=== PATIENT | male | born 1955 | race Caucasian/White ===

== ENCOUNTER 2018-03-29 09:31 | Observation (INO) | payer OTHER ==
--- OUTSIDE RECORDS SUMMARY | 2018-03-29 09:33 | XMS REPORT | Clinical Summary ---
:1955 Author Organization [facility] Address [address] [place] [address] Phone Care Team Providers Name Role Phone Unavailable Primary Care Provider Unavailable Allergies Active Allergy Reactions Severity Noted Date Comments Diphenhydramine-Zinc Acetate Anaphylaxis High 08/17/2017 Ibuprofen Anaphylaxis High 08/17/2017 Aspirin 08/17/2017 Hydrocodone-Acetaminophen 08/19/2017 Current Medications Prescription Sig. Disp. Refills Start Date End Date Status empagliflozin Take 10 mg by 05/17/2017 Active (JARDIANCE) 10 mg mouth daily. tabletIndications: type 2 diabetes mellitus SITagliptin Take 50 mg by Active (JANUVIA) 50 MG mouth daily. tabletIndications: type 2 diabetes mellitus glimepiride Take 2 mg by Active (AMARYL) 2 MG mouth 2 (two) tabletIndications: times daily. type 2 diabetes mellitus amiodarone Take 1 tablet 60 tablet 1 08/24/2017 08/24/2018 Active (PACERONE) 100 MG (100 mg tablet total) by mouth 2 (two) times daily. atorvastatin Take 1 tablet 30 tablet 0 08/24/2017 08/24/2018 Active (LIPITOR) 40 MG (40 mg total) tablet by mouth nightly. gabapentin Take 1 90 capsule 0 08/24/2017 08/24/2018 Active (NEURONTIN) 100 MG capsule (100 capsule mg total) by mouth 3 (three) times daily. lisinopril Take 1 tablet 30 tablet 0 08/24/2017 08/24/2018 Active (PRINIVIL,ZESTRIL) (5 mg total) 5 MG tablet by mouth daily. metoprolol Take 1 tablet 60 tablet 0 08/24/2017 08/24/2018 Active (LOPRESSOR) 25 MG (25 mg total) tablet by mouth 2 (two) times daily. clopidogrel Take 1 tablet 14 tablet 0 09/11/2017 09/11/2018 Active (PLAVIX) 75 mg (75 mg total) tablet by mouth daily. colchicine Take 1 tablet 14 tablet 0 09/11/2017 09/11/2018 Active (COLCRYS) 0.6 mg (0.6 mg tablet total) by mouth daily. amLODIPine Take 2.5 mg 08/24/2017 Discontinued (NORVASC) 2.5 MG by mouth tabletIndications: daily. Chronic Stable Angina Pectoris clopidogrel Take 75 mg by 08/24/2017 Discontinued (PLAVIX) 75 mg mouth daily. tabletIndications: Acute Coronary Syndrome metoprolol Take 50 mg by 08/24/2017 Discontinued (LOPRESSOR) 50 MG mouth 2 (two) tabletIndications: times daily. hypertension ramipril (ALTACE) Take 10 mg by 08/24/2017 Discontinued 10 MG mouth daily. capsuleIndications: hypertension apixaban (ELIQUIS) Take 1 tablet 60 tablet 0 08/24/2017 09/11/2017 Discontinued 2.5 mg Tab tablet (2.5 mg total) by mouth 2 (two) times daily. acetaminophen-codei Take 1 tablet 30 tablet 0 08/24/2017 09/13/2017 ne (TYLENOL #3) by mouth 300-30 mg per every 4 tablet (four) hours as needed for Pain for up to 20 days. Max Daily Amount: 6 tablets Active Problems Problem Noted Date S/P coronary artery bypass graft x 3 08/24/2017 Type 2 diabetes mellitus without complication (HCC) 08/19/2017 Coronary artery disease 08/18/2017 Essential hypertension 08/18/2017 Hyperlipidemia 08/18/2017 Encounters Date Type Specialty Care Team Description 09/10/2017 Anesthesia Event Gorge Mckenzie MD 09/10/2017 Procedure Pass 09/10/2017 Surgery Bandeali, PERICARDIOCENTESIS Benito Cevallos MD 09/09/2017 Orders Only General Internal Medicine 09/08/2017 - Hospital Cardiology Bandeali, Essential hypertension 09/11/2017 Encounter Benito (Primary Dx) MD Jg Cevallos Jamuna V., MD 09/08/2017 Orders Only Internal Medicine Renata Gregorio MD 08/30/2017 Clinical Support Cardiology Germaine Mesa Post-operative state MD Cristi (Primary Dx) 08/18/2017 Hospital Germaine Mesa Encounter MD Cristi 08/18/2017 Anesthesia Event NatanAri MD 08/18/2017 Procedure Pass 08/18/2017 Surgery Germaine Mesa BYPASS,AORTO CORONARY MD Cristi AJ/SVG 08/17/2017 - Hospital Cardiology Germaine Mesa S/P coronary artery 08/24/2017 Encounter MD Cristi bypass graft x 3 (Primary Dx);Coronary artery disease involving autologous vein bypass graft, angina presence unspecified;Coronary artery disease involving [place] coronary artery of [place] heart, angina presence unspecified;Essential hypertension;Coronary artery disease without angina pectoris, unspecified vessel or lesion type, unspecified whether point [place] ir[place] or transplanted heart 08/17/2017 Orders Only General Internal Medicine after 03/28/2017 Family History Medical History Relation Name Comments Diabetes Father Hearing loss Father Heart disease Father Miscarriages / Stillbirths Maternal Grandfather Heart disease Mother Stroke Mother Cancer Paternal Uncle Arthritis Sister Relation Name Status Comments Father Maternal Grandfather Mother Paternal Uncle Sister Social History Tobacco Use Types Packs/Day Years Used Date Never Smoker Smokeless Tobacco: Never Used Tobacco Cessation: Counseling Given: No Alcohol Use Drinks/Week oz/Week Comments Yes 2 Glasses of wine 4.2 2 Cans of beer 3 Shots of liquor Sex Assigned at Date Recorded Not on file Last Filed Vital Signs Vital Sign Reading Time Taken Blood Pressure 128/66 09/11/2017 12:00 PM CDT Pulse 71 09/11/2017 12:00 PM CDT Temperature 35.9 C (96.7 F) 09/11/2017 12:00 PM CDT Respiratory Rate 18 09/11/2017 12:00 PM CDT Oxygen Saturation 98% 09/11/2017 12:00 PM CDT Inhaled Oxygen Concentration - - Weight 95.2 kg (209 lb 14.4 oz) 09/11/2017 8:42 AM CDT Height 185.4 cm (6' 1") 09/08/2017 8:00 PM CDT Body Mass Index 27.69 09/11/2017 8:42 AM CDT Plan of Treatment Health Maintenance Due Date Last Done Comments INFLUENZA VACCINE 08/14/2018 Implants Implanted Type Area Director Of Recruitment And Admissions Device Expiration Model / Identifier Date Serial / Lot Sut Surg Stl 7 18g 18in Mls Mp M655g - [id number] [place]/Arthroscop J &J: ETHICON 05/13/2022 [id number] / Implanted: Qty: 1 on 08/18/2017 by Germaine Mesa MD y [id number] / [id number] Sut Surg Stl 7 18g 18in Mls Mp M655g - [id number] [place]/Arthroscop J &J: ETHICON 05/13/2022 [id number] / Implanted: Qty: 1 on 08/18/2017 by Germaine Mesa MD y [id number] / [id number] Sternal Zipfix Ndl Strl [id number] - Sn/A Cardiovascular Sternum SYNTHES :SYNTHES 06/13/2022 [id number] / Implanted: Qty: 2 on 08/18/2017 by Germaine Mesa MD [facility] N/A / [id number] Procedures Procedure Name Priority Date/Time Associated Diagnosis Comments PERICARDIOCENTESIS 09/10/2017 4:11 percardiofusion PM CDT ENDOSCOPIC HARVEST,VEIN 08/18/2017 7:30 CAOD AM CDT BYPASS,AORTO CORONARY 08/18/2017 7:30 CAOD AJ/SVG AM CDT after 03/28/2017 Results RHYTHM STRIP - SCAN (09/21/2017 1:22 PM)Only the most recent of3 resultswithin the time period is included.CARDIAC CATH REPORT - SCAN (09/12/2017 11:11 PM) ECHOCARDIOGRAM REPORT - SCAN (09/12/2017 7:20 AM)Only the most recent of2 resultswithin the time period is included.Limited 2D Echocardiogram (09/11/2017 12:16 PM) Component Value Ref Range Ejection Fraction Specimen Performing Laboratory [facility] Narrative Transthoracic Echocardiography Report (TTE) Demographics Patient Name GERMAINE DE LEÓN Date of Study 09/11/2017 ALANNAH [id number] GenderMale Visit Number [id number] Race Unknown [id number] Number [id number] Number Date of Birth1955 Referring Physician Age62 year(s) Publicity Manager Kenan Packer VICTOR HUGO [facility] Needs to be Pre Physician Read Suha Guzman MD Fellow LIANG Rider Procedure Type of Study TTE procedure:LIMITED 2D ECHOCARDIOGRAM (STAT) Indications:Pericardial effusion. Clinical History Coronary Artery Disease Diabetes Hypertension 08/18/17 ACB x3 09/10/17 Pericardiocentesis HGB 13.2 HCT 42.5 % Height: 73 inches Weight: 94.8 kg (209 lbs) BSA: 2.19 m^2 BMI: 27.57 kg/m^2 HR: 70 bpm BP: 122/67 mmHg Summary Limited 2D study to evaluate for pericardial effusion. A circumferential moderate pericardial effusion is present predominately loculated posteriorly measured at the end of diastole 1.8 cm. Small effusion anterior. Pericardial tamponade physiology is not evident by 2 d imaging. Signature Findings Left Ventricle Mild concentric LV hypertrophy. The left ventricle is chamber size (by vol index) is normal (male - LVED vol - 34-74ml/m2). Septal motion is abnormal, likely related to prior cardiac surgery . The other segments contract normally. LVEF by Spence's method of disk assessment is normal (55-60%) . The LVEF was measured using Spence's bi- plane method of disk . Degree of diastolic dysfunction (LAP assessment) is inconclusive due to 2D only . Left AtriumLA size is normal (16-34 ml/m2) . Right VentricleRV chamber size is normal . Global RV systolic function is low normal . Right Atrium RA cavity size is normal . Aortic Valve Normal AoV structure. Aortic annulus appears calcified. Mitral Valve Mild MV leaflet thickening. Tricuspid ValveTV structure is normal. Pulmonic Valve Normal PV structure. AortaAortic root size (SInus of Valsalva diameter) is normal . PericardiumA circumferential moderate pericardial effusion is present predominately loculated posteriorly measured at the end of diastole 1.8 cm. Small effusion anterior. Pericardial tamponade physiology is not evident . IVC/SVC/PA/PV/PleuralThe inferior vena cava is not visualized. The estimated RA pressure by IVC dynamics indeterminate . Chambers/Structures Left Atrium LA Volume: 66.99 ml LA Area: 22.63 cm^ 2 LA Vol. Index: 31 ml/m^2 Left Ventricle LVIDd: 3.48 cm LVEDV 2D: 50.24 ml LVIDs: 2.24 cm LVESV 2D: 17 ml LV Septum Diastolic: 1.95 cm LV Septum Systolic: 1.79 cm LV PW Diastolic: 1.49 cm LV FS: 35.6 % LV PW Systolic: 1.46 cmLV ESV (Cubed): 11.24 cc LVEDV BP Spence's:139.96 ml LVESV BP Spence's:59.86 ml LVEF BP Spence's: 57.2 % LV ESV (Teich):16.96 ml LV SV (Teich):33.22 ml LV SI (Teich):15.17 ml/m^2 LVEF 2D Teich: 66.2 % Aorta Ao Root S of Bryanna.: 2.52 cm Procedure Note Interface, External Ris In - 09/12/2017 1:41 AM CDT Transthoracic Echocardiography Report (TTE) Demographics Patient Name GERMAINE DE LEÓN Date of Study 09/11/2017 [facility] Gender Male Visit Number [id number] Race Unknown Room Number 1055 Number Date of 1955 Referring Physician Age 62 year(s) Publicity Manager Kenan Packer RDCS Interpreting [facility] Needs to be Pre Physician Read Suha Guzman MD Fellow LIANG Rider Procedure Type of Study TTE procedure:LIMITED 2D ECHOCARDIOGRAM (STAT) Indications:Pericardial effusion. Clinical History Coronary Artery Disease Diabetes Hypertension 08/18/17 ACB x3 09/10/17 Pericardiocentesis HGB 13.2 HCT 42.5 % Height: 73 inches Weight: 94.8 kg (209 lbs) BSA: 2.19 m^2 BMI: 27.57 kg/m^2 HR: 70 bpm BP: 122/67 mmHg Summary Limited 2D study to evaluate for pericardial effusion. A circumferential moderate pericardial effusion is present predominately loculated posteriorly measured at the end of diastole 1.8 cm. Small effusion anterior. Pericardial tamponade physiology is not evident by 2 d imaging. Signature Findings Left Ventricle Mild concentric LV hypertrophy. The left ventricle is chamber size (by vol index) is normal (male - LVED vol - 34-74ml/m2). Septal motion is abnormal, likely related to prior cardiac surgery . The other segments contract normally. LVEF by Spence's method of disk assessment is normal (55-60%) . The LVEF was measured using Spence's bi-plane method of disk . Degree of diastolic dysfunction (LAP assessment) is inconclusive due to 2D only . Left Atrium LA size is normal (16-34 ml/m2) . Right Ventricle RV chamber size is normal . Global RV systolic function is low normal . Right Atrium RA cavity size is normal . Aortic Valve Normal AoV structure. Aortic annulus appears calcified. Mitral Valve Mild MV leaflet thickening. Tricuspid Valve TV structure is normal. Pulmonic Valve Normal PV structure. Aorta Aortic root size (SInus of Valsalva diameter) is normal . Pericardium A circumferential moderate pericardial effusion is present predominately loculated posteriorly measured at the end of diastole 1.8 cm. Small effusion anterior. Pericardial tamponade physiology is not evident . IVC/SVC/PA/PV/Pleural The inferior vena cava is not visualized. The estimated RA pressure by IVC dynamics indeterminate . Chambers/Structures Left Atrium LA Volume: 66.99 ml LA Area: 22.63 cm^2 LA Vol. Index: 31 ml/m^2 Left Ventricle LVIDd: 3.48 cm LVEDV 2D:50.24 ml LVIDs: 2.24 cm LVESV 2D:17 ml LV Septum Diastolic: 1.95 cm LV Septum Systolic: 1.79 cm LV PW Diastolic: 1.49 cm LV FS: 35.6 % LV PW Systolic: 1.46 cm LV ESV (Cubed):11.24 cc LVEDV BP Spence's:139.96 ml LVESV BP Spence's:59.86 ml LVEF BP Spence's: 57.2 % LV ESV (Teich):16.96 ml LV SV (Teich):33.22 ml LV SI (Teich):15.17 ml/m^2 LVEF 2D Teich: 66.2 % Aorta Ao Root S of Bryanna.: 2.52 cm POC-Glucose meter (09/11/2017 11:09 AM)Only the most recent of38 resultswithin the time period is included. Component Value Ref Range POC-Glucose Meter 186 (H)Comment: TESTED AT [address] 70 - 110 mg/[place] [id number] Specimen Performing Laboratory Blood [address] [address] CBC (Hemogram only) (09/11/2017 4:56 AM)Only the most recent of3 resultswithin the time period is included. Component Value Ref Range WBC 6.7 3.5 - 10.5 K/L RBC 4.87 4.63 - 6.08 M/L Hemoglobin 13.2 (L) 13.7 - 17.5 GM/DL Hematocrit 42.5 40.1 - 51.0 % MCV 87.3 79.0 - 92.2 fL MCH 27.1 25.7 - 32.2 pg MCHC 31.1 (L) 32.3 - 36.5 GM/DL RDW 14.0 11.6 - 14.4 % Platelets 332 150 - 450 K/CU MM MPV 9.8 9.4 - 12.4 fL nRBC 0 0 - 0 /100 WBC Specimen Performing Laboratory Blood [address] [address] Basic Metabolic Panel (09/11/2017 4:56 AM)Only the most recent of11 resultswithin the time period is included. Component Value Ref Range Sodium 142 136 - 145 meq/L Potassium 5.1 3.5 - 5.1 meq/L Chloride 108 (H) 98 - 107 meq/L CO2 26 22 - 29 meq/L BUN 20 7 - 21 mg/dL Creatinine 1.34 (H) 0.57 - 1.25 mg/dL Glucose 118 (H) 70 - 105 mg/dL Calcium 9.3 8.4 - 10.2 mg/dL EGFR 54Comment: ESTIMATED GFR IS NOT ACCURATE mL/min/1.73 sq m CREATININE CLEARANCE IN PREDICTING GLOMERULAR FILTRATION RATE. ESTIMATED GFR IS NOT APPLICABLE FOR DIALYSIS PATIENTS. Specimen Performing Laboratory Blood [place] [id number] ECG 12 lead (09/09/2017 5:40 AM)Only the most recent of3 resultswithin the time period is included. Specimen Performing Laboratory GE MUSE Narrative Ventricular Rate 69 BPM Atrial Rate 69 BPM P-R Interval 146 ms QRS Duration 90 ms Q-T Interval 448 ms QTC Calculation(Bazett) 480 ms P [place] 38 degrees R [place] -13 degrees T [place] 137 degrees Normal sinus rhythm T wave abnormality, consider anterolateral ischemia Prolonged QT Abnormal ECG When compared with ECG of 17-AUG-2017 22:01, Non-specific change in ST segment in Inferior leads ST no longer depressed in Anterior leads T wave inversion less evident in Anterior leads Confirmed by MD MARROQUIN RUPA ([id number]) on 09/09/2017 1:54:07 PM Procedure Note Interface, External Ris In - 09/09/2017 1:54 PM CDT Ventricular Rate 69 BPM Atrial Rate 69 BPM P-R Interval 146 ms QRS Duration 90 ms Q-T Interval 448 ms QTC Calculation(Bazett) 480 ms P [place] 38 degrees R [place] -13 degrees T [place] 137 degrees Normal sinus rhythm T wave abnormality, consider anterolateral ischemia Prolonged QT Abnormal ECG When compared with ECG of 17-AUG-2017 22:01, Non-specific change in ST segment in Inferior leads ST no longer depressed in Anterior leads T wave inversion less evident in Anterior leads Confirmed by MD MARROQUIN RUPA ([id number]) on 09/09/2017 1:54:07 PM PT/aPTT (09/08/2017 9:39 PM) Component Value Ref Range Protime 15.6 (H) 11.7 - 14.7 seconds INR 1.3 <=5.9 PTT 35.9 22.5 - 36.0 seconds Specimen Performing Laboratory Blood [address] [address] Narrative RECOMMENDED COUMADIN/WARFARIN INR THERAPY RANGES STANDARD DOSE: 2.0 - 3.0 Includes: PROPHYLAXIS for venous thrombosis, systemic embolization; TREATMENT for venous thrombosis and/or pulmonary embolus. HIGH RISK: Target INR is 2.5-3.5 for patients with mechanical heart valves. CBC with platelet count + automated diff (09/08/2017 9:39 PM)Only the most recent of9 resultswithin the time period is included. Component Value Ref Range WBC 8.1 3.5 - 10.5 K/L RBC 4.66 4.63 - 6.08 M/L Hemoglobin 12.6 (L) 13.7 - 17.5 GM/DL Hematocrit 40.7 40.1 - 51.0 % MCV 87.3 79.0 - 92.2 fL MCH 27.0 25.7 - 32.2 pg MCHC 31.0 (L) 32.3 - 36.5 GM/DL RDW 14.1 11.6 - 14.4 % Platelets 438 150 - 450 K/CU MM MPV 10.2 9.4 - 12.4 fL nRBC 0 0 - 0 /100 WBC % Neutros 68 % % Lymphs 19 % % Monos 8 % % Eos 4 % % Baso 1 % # Neutros 5.28 1.78 - 5.38 K/L # Lymphs 1.49 1.32 - 3.57 K/L # Monos 0.60 0.30 - 0.82 K/L # Eos 0.29 0.04 - 0.54 K/L # Baso 0.00 (L) 0.01 - 0.08 K/L Immature Granulocytes-Relative 0 0 - 1 % Specimen Performing Laboratory Blood [address] [address] CBC with platelet count + automated diff (09/08/2017 9:39 PM)Only the most recent of9 resultswithin the time period is included. Specimen Performing Laboratory Blood Narrative The following orders were created for panel order CBC with platelet count + automated diff. Procedure Abnormality Status --------- ------ CBC with platelet count ...[[id number]]AbnormalFinal result Please view results for these tests on the individual orders. Phosphorus (09/08/2017 9:39 PM)Only the most recent of3 resultswithin the time period is included. Component Value Ref Range Phosphorus 3.4 2.3 - 4.7 mg/dL Specimen Performing Laboratory Blood [address] [address] Magnesium (09/08/2017 9:39 PM)Only the most recent of3 resultswithin the time period is included. Component Value Ref Range Magnesium 2.0 1.6 - 2.6 mg/dL Specimen Performing Laboratory Blood [address] [address] Hepatic function panel (09/08/2017 9:39 PM)Only the most recent of2 resultswithin the time period is included. Component Value Ref Range Protein, Total 7.2 6.0 - 8.3 gm/dL Albumin 3.9 3.5 - 5.0 g/dL Total Bilirubin <0.3 0.2 - 1.2 mg/dL Bilirubin, Direct 0.2 0.1 - 0.5 mg/dL Alkaline Phosphatase 114 40 - 150 U/L AST 15 5 - 34 U/L ALT 15 6 - 55 U/L Specimen Performing Laboratory Blood [address] [address] PERMANENT LAB REPORT - SCAN (08/25/2017 12:43 PM)VASCULAR DIAGRAM -SCAN (2016 12:43 PM)2D Echo W/O Doppler(No Doppler) (08/23/2017 4:36 PM) Component Value Ref Range Ejection Fraction Specimen Performing Laboratory [facility] Narrative Transthoracic Echocardiography Report (TTE) Demographics Patient Name GERMAINE DE LEÓN Date of Study 08/23/2017 [id number] GenderMale Visit Number [id number] Race Unknown [id number] Number [id number] Number Date of Birth1955 Referring Physician Age62 year(s) Publicity Manager Margaux Lopez [facility] Needs to be Pre Physician Read Suha Guzman MD Fellow Johnny TAVERA Procedure Type of Study TTE procedure:ECHO2D MODE W/O DOPPLER (OLGA LIDIA) Indications:Sustained or non sustained Afib, SVT or VT. Clinical History HGB 10.4 HCT 32.5 % ACB X 3 (08/18/17) CAD, HTN, HLD, DM Height: 72 inches Weight: 102.97 kg (227 lbs) BSA: 2.25 m^2 BMI: 30.79 kg/m^2 HR: 88 bpm BP: 139/65 mmHg Summary Normal diastolic function. All of the LV segments contract normally . Estimated LVEF by qualitative assessment is normal (55-60%) Estimated peak systolic PA pressure is 20-25 mmHg . Intermediate sized circumferential pericardial effusion ~ 10 mm in size end diastole. No evidence of tamponade Previous Study No prior study Signature Findings Rhythm/BPIndeterminate rhythm during the exam. Left Ventricle LV septal thickness is mildly increased (1.2-1.4cm). LV posterior wall thickness is normal . The left ventricle is chamber size (by PSLAX dimension) is normal (male - LVIDd 4.2-5.8cm) . Septal motion is abnormal, likely related to prior cardiac surgery . Normal diastolic function. All of the LV segments contract normally . Estimated LVEF by qualitative assessment is normal (55-60%) . Left AtriumLA size is normal . Right VentricleGlobal RV systolic function is mildly reduced . Right Atrium RA size is normal. Aortic Valve Aortic annulus appears calcified . Mitral Valve Mild MV leaflet thickening. Tricuspid ValveMild tricuspid regurgitation. Estimated peak systolic PA pressure is 20-25 mmHg . Pulmonic Valve Normal PV structure and function. AortaAortic root size (SInus of Valsalva diameter) is normal . The aortic sinotubular junction appears normal . Proximal ascending aorta size is normal . PericardiumIntermediate sized circumferential pericardial effusion ~ 10 mm in size end diastole. No evidence of tamponade. IVC/SVC/PA/PV/PleuralThe inferior vena cava is adequately visualized. The inferior vena cava size is increased . The estimated RA pressure by IVC dynamics 11-15mmHg . Chambers/Structures Left Atrium LA Volume: 52.3 mlLA Area: 17.26 cm^2 LA Vol. Index: 23 ml/m^2 Left Ventricle LVIDd: 4.28 cm LVEDV 2D:82.09 ml LV Septum Diastolic: 1.37 cm LV PW Diastolic: 1.07 cm LVOT Diameter: 2.[address] Junction: 2.54 cm Ascending Aorta: 2.77 cm Shunts QS:61.13 ml Doppler/Quantitative Measurements Mitral Valve MV Peak E-Wave: 1.29 m/s MV Peak A-Wave: 1 m/s E/A Ratio: 1.29 Mean Velocity: 0.76 m/sPeak Gradient: 6.61 mmHg Mean Gradient: 2.77 mmHg Area (continuity): 1.89 cm^2 MV VTI: 32.25 cm Tissue Doppler E' Lateral Velocity: 0.1 m/s E/E': 13.14 Aortic Valve Peak Velocity: 1.16 m/sMean Velocity: 0.86 m/s Peak Gradient: 5.34 mmHg Mean Gradient: 3.27 mmHg AV Area (continuity): 3.06 cm^2 AV VTI: 20 cm AV DVI: 0.83 LVOT Peak Velocity: 1 m/s Peak Gradient: 4 mmHg Mean Velocity: 0.6 m/s Mean Gradient: 1.72 mmHg LVOT Diameter: 2.17 cm LVOT VTI: 16.53 cm LVOT Area: 3.7 cm^2LVOT SV:61.1 ml LVOT CO: 5.38 l/minLVOT CI: 2.39 l/min/m^2 Procedure Note Interface, External Ris In - 08/24/2017 8:29 PM CDT Transthoracic Echocardiography Report (TTE) Demographics Patient Name GERMAINE DE LEÓN Date of Study 08/23/2017 Gender Male Visit Number [id number] Race Unknown Room Number 1142 Number Date of 1955 Referring Physician Age 62 year(s) Publicity Manager Margaux Lopez Interpreting [facility] Needs to be Pre Physician Read Suha Guzman MD Fellow Johnny TAVERA Procedure Type of Study TTE procedure:ECHO2D MODE W/O DOPPLER (OLGA LIDIA) Indications:Sustained or non sustained Afib, SVT or VT. Clinical History HGB 10.4 HCT 32.5 % ACB X 3 (08/18/17) CAD, HTN, HLD, DM Height: 72 inches Weight: 102.97 kg (227 lbs) BSA: 2.25 m^2 BMI: 30.79 kg/m^2 HR: 88 bpm BP: 139/65 mmHg Summary Normal diastolic function. All of the LV segments contract normally . Estimated LVEF by qualitative assessment is normal (55-60%) Estimated peak systolic PA pressure is 20-25 mmHg . Intermediate sized circumferential pericardial effusion ~ 10 mm in size end diastole. No evidence of tamponade Previous Study No prior study Signature Findings Rhythm/BP Indeterminate rhythm during the exam. Left Ventricle LV septal thickness is mildly increased (1.2-1.4cm). LV posterior wall thickness is normal . The left ventricle is chamber size (by PSLAX dimension) is normal (male - LVIDd 4.2-5.8cm) . Septal motion is abnormal, likely related to prior cardiac surgery . Normal diastolic function. All of the LV segments contract normally . Estimated LVEF by qualitative assessment is normal (55-60%) . Left Atrium LA size is normal . Right Ventricle Global RV systolic function is mildly reduced . Right Atrium RA size is normal. Aortic Valve Aortic annulus appears calcified . Mitral Valve Mild MV leaflet thickening. Tricuspid Valve Mild tricuspid regurgitation. Estimated peak systolic PA pressure is 20-25 mmHg . Pulmonic Valve Normal PV structure and function. Aorta Aortic root size (SInus of Valsalva diameter) is normal . The aortic sinotubular junction appears normal . Proximal ascending aorta size is normal . Pericardium Intermediate sized circumferential pericardial effusion ~ 10 mm in size end diastole. No evidence of tamponade. IVC/SVC/PA/PV/Pleural The inferior vena cava is adequately visualized. The inferior vena cava size is increased . The estimated RA pressure by IVC dynamics 11-15mmHg . Chambers/Structures Left Atrium LA Volume: 52.3 ml LA Area: 17.26 cm^2 LA Vol. Index: 23 ml/m^2 Left Ventricle LVIDd: 4.28 cm LVEDV 2D:82.09 ml LV Septum Diastolic: 1.37 cm LV PW Diastolic: 1.07 cm LVOT Diameter: 2.[address] Junction: 2.54 cm Ascending Aorta: 2.77 cm Shunts QS:61.13 ml Doppler/Quantitative Measurements Mitral Valve MV Peak E-Wave: 1.29 m/s MV Peak A-Wave: 1 m/s E/A Ratio: 1.29 Mean Velocity: 0.76 m/s Peak Gradient: 6.61 mmHg Mean Gradient: 2.77 mmHg Area (continuity): 1.89 cm^2 MV VTI: 32.25 cm Tissue Doppler E' Lateral Velocity: 0.1 m/s E/E': 13.14 Aortic Valve Peak Velocity: 1.16 m/s Mean Velocity: 0.86 m/s Peak Gradient: 5.34 mmHg Mean Gradient: 3.27 mmHg AV Area (continuity): 3.06 cm^2 AV VTI: 20 cm AV DVI: 0.83 LVOT Peak Velocity: 1 m/s Peak Gradient: 4 mmHg Mean Velocity: 0.6 m/s Mean Gradient: 1.72 mmHg LVOT Diameter: 2.17 cm LVOT VTI: 16.53 cm LVOT Area: 3.7 cm^2 LVOT SV:61.1 ml LVOT CO: 5.38 l/min LVOT CI: 2.39 l/min/m^2 TRANSFUSION SERVICE REPORT - SCAN (08/20/2017 5:32 PM)Only the most recent of3 resultswithin the time period is included.XR chest 1 view portable / bedside ( 5:34 AM)Only the most recent of5 resultswithin the time period is included. Specimen Performing Laboratory GE RIS Narrative FINAL REPORT Chest one view AP 08/20/2017 8:10 AM CLINICAL INDICATION: s/p sternotomy COMPARISON: 08/19/2017 IMPRESSION: Cardiomediastinal contours are stable. Opacity in the left lower lung suggest atelectasis. The right lung is well aerated. The central pulmonary vasculature is not engorged. Remaining support hardware is unchanged in position. No pneumothorax is evident. Signed: Dread Lisa MD Report Verified Date/Time:08/20/2017 08:11:17 Reading Location: [address] Neuro Reading Room Procedure Note Interface, External Ris In - 08/20/2017 8:13 AM CDT FINAL REPORT Chest one view AP 08/20/2017 8:10 AM CLINICAL INDICATION: s/p sternotomy COMPARISON: 08/19/2017 IMPRESSION: Cardiomediastinal contours are stable. Opacity in the left lower lung suggest atelectasis. The right lung is well aerated. The central pulmonary vasculature is not engorged. Remaining support hardware is unchanged in position. No pneumothorax is evident. Signed: Dread Lisa MD Report Verified Date/Time: 08/20/2017 08:11:17 Reading Location: [address] Neuro Reading Room Hemoglobin A1c (08/20/2017 5:13 AM) Component Value Ref Range Hemoglobin A1C 7.5 (H) 4.3 - 6.1 % Specimen Performing Laboratory Blood [address] [address] Prepare PLT (08/19/2017 11:54 PM) Component Value Ref Range Unit ABO O Pos UNIT NUMBER [id number] Status TRANSFUSED Blood Bank Product PLATELETS PRODUCT CODE Y5576H37 Unit ABO O Pos UNIT NUMBER [id number] Status TRANSFUSED Blood Bank Product PLATELETS PRODUCT CODE H1233H11 Specimen Performing Laboratory [facility] [place] Oxygen saturation, measured (08/19/2017 4:59 AM)Only the most recent of2 resultswithin the time period is included. Component Value Ref Range O2 Saturation (Measured) 72.3 % Specimen Performing Laboratory Blood [address] [address] Calcium, Ionized (08/19/2017 4:59 AM)Only the most recent of3 resultswithin the time period is included. Component Value Ref Range Calcium, Ion 1.17 1.12 - 1.27 mmol/L pH, Blood 7.35 Specimen Performing Laboratory Blood [address] [address] Lactic acid, arterial, whole blood (08/19/2017 4:59 AM)Only the most recent of2 resultswithin the time period is included. Component Value Ref Range Lactate, Art 0.9 0.5 - 2.2 mmol/L Specimen Performing Laboratory Blood, [address] [address] Narrative Effective 03/17/2016: Units/Reference Range Change New: 0.5-2.2 mmol/LPrevious: 5-20 mg/dL Potassium-Stat Lab (08/18/2017 3:07 PM)Only the most recent of5 resultswithin the time period is included. Component Value Ref Range Potassium 4.8 3.6 - 5.5 meq/L Specimen Performing Laboratory Blood, [address] [address] Glucose-Stat Lab (08/18/2017 3:07 PM)Only the most recent of5 resultswithin the time period is included. Component Value Ref Range Glucose 213 (H) 70 - 110 mg/dL Specimen Performing Laboratory Blood, [address] [address] Blood gas, arterial (08/18/2017 3:07 PM)Only the most recent of5 resultswithin the time period is included. Component Value Ref Range pH, Arterial 7.36 7.35 - 7.45 pCO2, Arterial 40 35 - 45 mmHg pO2, Arterial 102 (H) 80 - 90 mmHg O2 Sat, Arterial 97.5 (H) 96.0 - 97.0 % HCO3, Arterial 22 21 - 29 mmol/L Base Excess, Arterial -3.1 (L) -2.0 - 3.0 mmol/L Patient Temperature 36.9 C FIO2 40.0 % Specimen Performing Laboratory Blood, [address] [address] Platelet Aggregation: Function Screen (08/18/2017 1:21 PM)Only the most recent of2 resultswithin the time period is included. Component Value Ref Range Weak ADP 39 (L)Comment: Specimen icteric 60 - 91 % Plt. Function Screen Interpretation 0-39% indicates marked platelet dysfunction Pathologist: Fanny Hansen MD (electronic signature) Platelets 324 150 - 450 K/CU MM Specimen Performing Laboratory [address] [address] Narrative Platelet Function Screen results may be falsely low with platelet counts <100,000/cu mm. aPTT (08/18/2017 1:21 PM)Only the most recent of4 resultswithin the time period is included. Component Value Ref Range PTT 32.7 22.5 - 36.0 seconds Specimen Performing Laboratory Blood [address] [address] Prothromin time/INR (08/18/2017 1:21 PM)Only the most recent of4 resultswithin the time period is included. Component Value Ref Range Protime 15.3 (H) 11.7 - 14.7 seconds INR 1.2 <=5.9 Specimen Performing Laboratory Blood [address] [address] Narrative RECOMMENDED COUMADIN/WARFARIN INR THERAPY RANGES STANDARD DOSE: 2.0 - 3.0 Includes: PROPHYLAXIS for venous thrombosis, systemic embolization; TREATMENT for venous thrombosis and/or pulmonary embolus. HIGH RISK: Target INR is 2.5-3.5 for patients with mechanical heart valves. Fibrinogen (08/18/2017 1:21 PM)Only the most recent of2 resultswithin the time period is included. Component Value Ref Range Fibrinogen 350 225 - 434 mg/dl Specimen Performing Laboratory Blood [address] [address] Prepare RBC (08/18/2017 1:01 PM) Component Value Ref Range CROSSMATCH COMPATIBLE Unit ABO O Pos UNIT NUMBER [id number] Status RETURNED FROM ISSUE Blood Bank Product RED BLOOD CELLS PRODUCT CODE A6431Z82 CROSSMATCH COMPATIBLE Unit ABO O Pos UNIT NUMBER [id number] Status RETURNED FROM ISSUE Blood Bank Product RED BLOOD CELLS PRODUCT CODE Q5663L79 CROSSMATCH COMPATIBLE Unit ABO O Pos UNIT NUMBER [id number] Status RETURNED FROM ISSUE Blood Bank Product RED BLOOD CELLS PRODUCT CODE Y5178S12 CROSSMATCH COMPATIBLE Unit ABO O Pos UNIT NUMBER [id number] Status RETURNED FROM ISSUE Blood Bank Product RED BLOOD CELLS PRODUCT CODE [id number] Specimen Performing Laboratory [facility] [place] Sodium Na-Stat Lab (08/18/2017 11:29 AM)Only the most recent of4 resultswithin the time period is included. Component Value Ref Range Sodium 133 (L) 135 - 148 meq/L Specimen Performing Laboratory Blood, Arterial [address] [address] HGB/HCT (H&H)-Stat Lab (08/18/2017 11:29 AM)Only the most recent of4 resultswithin the time period is included. Component Value Ref Range Hemoglobin 14.8 13.0 - 16.8 g/dL Hematocrit 44.0 40.0 - 50.0 % Specimen Performing Laboratory Blood, Arterial [address] [address] ANESTHESIA ZEINA (08/18/2017 10:39 AM)Only the most recent of2 resultswithin the time period is included. Narrative Jg Deras MD 08/18/2017 10:39 AM ZEINA Pre Intervention Summary: Post Intervention Summary: Procedure Note Jg Deras MD - 08/18/2017 10:38 AM CDT Formatting of this note may be different from the original. ZEINA Pre Intervention Summary: Post Intervention Summary: POC ACTIVATED CLOTTING TIME (08/18/2017 9:55 AM)Only the most recent of3 resultswithin the time period is included. Component Value Ref Range Activated Clotting Time 120Comment: TESTED AT [address] sec [id number] Specimen Performing Laboratory Blood [address] [address] [facility] (ABG,NA,K,H&H,GLUCOSE) (08/18/2017 9:52 AM)Only the most recent of3 resultswithin the time period is included. Specimen Performing Laboratory Blood, Arterial Narrative The following orders were created for panel order [facility] (ABG,NA,K,H&H,GLUCOSE). Procedure Abnormality Status --------- ------ Blood gas, arterial[[id number]]AbnormalFinal result Sodium Na-Stat Lab[[id number]] AbnormalFinal result Potassium-Stat Lab[[id number]] NormalFinal result Glucose-Stat Lab[[id number]] AbnormalFinal result HGB/HCT (H&H)-Stat Lab[[id number]] Abnormal Final result Please view results for these tests on the individual orders. Thromboelastograph (TEG) (08/18/2017 9:52 AM) Component Value Ref Range TEG Activated Clotting Time 4.5 4.0 - 7.0 minutes TEG Fibrinogen Activity 60.8 (L) 61.0 - 73.0 degrees TEG Platelet Aggregation 49.3 (L) 55.0 - 65.0 MM TEG-H Activated Clotting Time 4.5 4.0 - 7.0 minutes TEG-H Fibrinogen Activity 65.4 61.0 - 73.0 degrees TEG-H Platelet Aggregation 52.6 (L) 55.0 - 65.0 MM Specimen Performing Laboratory Blood [address] [address] Platelet count (08/18/2017 9:52 AM)Only the most recent of2 resultswithin the time period is included. Component Value Ref Range Platelets 80 (L) 150 - 450 K/CU MM Specimen Performing Laboratory Blood [address] [address] Lactic acid, venous, whole blood (08/18/2017 5:45 AM) Component Value Ref Range Lactate, Venous 1.4 0.5 - 2.2 mmol/L Specimen Performing Laboratory Blood [address] [address] Narrative Effective 03/17/2016: Units/Reference Range Change New: 0.5-2.2 mmol/LPrevious: 5-20 mg/dL On admission then every day until IABP removed BUN (08/18/2017 5:45 AM) Component Value Ref Range BUN 25 (H) 7 - 21 mg/dL Specimen Performing Laboratory Blood [address] [address] Narrative On admission then every day until IABP removed On admission then every day until IABP removed On admission then every day until IABP removed Creatinine, serum (08/18/2017 5:45 AM) Component Value Ref Range Creatinine 1.28 (H) 0.57 - 1.25 mg/dL EGFR 57Comment: ESTIMATED GFR IS NOT ACCURATE mL/min/1.73 sq m CREATININE CLEARANCE IN PREDICTING GLOMERULAR FILTRATION RATE. ESTIMATED GFR IS NOT APPLICABLE FOR DIALYSIS PATIENTS. Specimen Performing Laboratory Blood [address] [address] Narrative On admission then every day until IABP removed On admission then every day until IABP removed On admission then every day until IABP removed Type and screen, automated (08/17/2017 11:06 PM) Component Value Ref Range ABO/RH AUTOMATED (BEAKER) O POSITIVE Ab Scrn NEGATIVE Specimen Performing Laboratory Blood [address] [address] after 03/28/2017
--- OUTSIDE RECORDS SUMMARY | 2018-03-29 09:34 | XMS REPORT ---
:1955 [facility] Organization [facility] Address [address] [place] [address] Care Team Providers Name Role Phone DAVID ENRICOMIKE HERMINIA Unavailable Unavailable TANVIR GERMAINE TEODORA Unavailable Unavailable Problems This patient has no known problems. Allergies, Adverse Reactions, Alerts This patient has no known allergies or adverse reactions. Medications This patient has no known medications. Results Test Description Test Time Test Comments Text Results Atomic Results Result Comments POCT-GLUCOSE METER 2017-09-11 12:12:00 Test Item Value Reference Range Comments POC-GLUCOSE METER (BEAKER) (test 186 mg/dL 70-110 TESTED AT [facility] [address] [facility] koez=[id number]) [facility] [address] POCT-GLUCOSE [id number] 08:21:00 Test Item Value Reference Range Comments POC-GLUCOSE METER (BEAKER) 132 mg/dL 70-110 TESTED AT [facility] [address] [facility] (test lekh=1193) [facility] [address] BASIC METABOLIC [id number] 06:08:00 Test Item Value Reference Range Comments SODIUM (BEAKER) (test 142 meq/L 136-145 iwkc=414) POTASSIUM (BEAKER) (test 5.1 meq/L 3.5-5.1 mgvr=385) CHLORIDE (BEAKER) (test 108 meq/L 98-107 vthx=188) CO2 (BEAKER) (test 26 meq/L 22-29 vlqv=695) BLOOD UREA NITROGEN 20 mg/dL 7-21 (BEAKER) (test rvsa=239) CREATININE (BEAKER) (test 1.34 mg/dL 0.57-1.25 dfeb=414) GLUCOSE RANDOM (BEAKER) 118 mg/dL 70-105 (test vuau=124) CALCIUM (BEAKER) (test 9.3 mg/dL 8.4-10.2 rwoy=001) EGFR (BEAKER) (test 54 mL/min/1.73 sq m ESTIMATED GFR IS NOT gasu=9942) ACCURATE CREATININE CLEARANCE IN PREDICTING GLOMERULAR FILTRATION RATE. ESTIMATED GFR IS NOT APPLICABLE FOR DIALYSIS PATIENTS. CBC (HEMOGRAM ONLY)2017-09-11 05:32:00 Test Item Value Reference Range Comments WHITE BLOOD CELL COUNT (BEAKER) (test qvwl=155) 6.7 K/ L 3.5-10.5 RED BLOOD CELL COUNT (BEAKER) (test gvvk=416) 4.87 M/ L 4.63-6.08 HEMOGLOBIN (BEAKER) (test wwzf=331) 13.2 GM/DL 13.7-17.5 HEMATOCRIT (BEAKER) (test jzfn=185) 42.5 % 40.1-51.0 MEAN CORPUSCULAR VOLUME (BEAKER) (test ogwa=409) 87.3 fL 79.0-92.2 MEAN CORPUSCULAR HEMOGLOBIN (BEAKER) (test 27.1 pg 25.7-32.2 stjj=353) MEAN CORPUSCULAR HEMOGLOBIN CONC (BEAKER) (test 31.1 GM/DL 32.3-36.5 ihup=388) RED CELL DISTRIBUTION WIDTH (BEAKER) (test 14.0 % 11.6-14.4 skil=213) PLATELET COUNT (BEAKER) (test xruw=411) 332 K/CU MM 150-450 MEAN PLATELET VOLUME (BEAKER) (test xmtv=433) 9.8 fL 9.4-12.4 NUCLEATED RED BLOOD CELLS (BEAKER) (test 0 /100 WBC 0-0 kzvg=735) POCT-GLUCOSE [id number] 21:54:00 Test Item Value Reference Range Comments POC-GLUCOSE METER (BEAKER) 272 mg/dL 70-110 TESTED AT [address] (test dvex=1165) [facility] [address] POCT-GLUCOSE [id number] 18:21:00 Test Item Value Reference Range Comments POC-GLUCOSE METER (BEAKER) 108 mg/dL 70-110 TESTED AT [address] (test wggs=7354) [facility] [address] POCT-GLUCOSE [id number] 12:44:00 Test Item Value Reference Range Comments POC-GLUCOSE METER (BEAKER) 217 mg/dL 70-110 TESTED AT [address] (test ckho=5079) [facility] [address] POCT-GLUCOSE [id number] 08:23:00 Test Item Value Reference Range Comments POC-GLUCOSE METER (BEAKER) 136 mg/dL 70-110 TESTED AT [facility] [address] (test nhtz=6043) [facility] [address] BASIC METABOLIC [id number] 06:34:00 Test Item Value Reference Range Comments SODIUM (BEAKER) (test 139 meq/L 136-145 ztla=143) POTASSIUM (BEAKER) (test 4.8 meq/L 3.5-5.1 eibj=444) CHLORIDE (BEAKER) (test 106 meq/L 98-107 gmff=568) CO2 (BEAKER) (test 26 meq/L 22-29 tpae=890) BLOOD UREA NITROGEN 25 mg/dL 7-21 (BEAKER) (test diwe=756) CREATININE (BEAKER) (test 1.38 mg/dL 0.57-1.25 tmxj=380) GLUCOSE RANDOM (BEAKER) 115 mg/dL 70-105 (test oyjd=656) CALCIUM (BEAKER) (test 9.1 mg/dL 8.4-10.2 swjn=738) EGFR (BEAKER) (test 52 mL/min/1.73 sq m ESTIMATED GFR IS NOT rkzh=4032) ACCURATE CREATININE CLEARANCE IN PREDICTING GLOMERULAR FILTRATION RATE. ESTIMATED GFR IS NOT APPLICABLE FOR DIALYSIS PATIENTS. CBC (HEMOGRAM ONLY)2017-09-10 05:14:00 Test Item Value Reference Range Comments WHITE BLOOD CELL COUNT (BEAKER) (test hvrv=387) 6.2 K/ L 3.5-10.5 RED BLOOD CELL COUNT (BEAKER) (test lany=494) 4.63 M/ L 4.63-6.08 HEMOGLOBIN (BEAKER) (test minm=358) 12.4 GM/DL 13.7-17.5 HEMATOCRIT (BEAKER) (test wfsh=054) 40.5 % 40.1-51.0 MEAN CORPUSCULAR VOLUME (BEAKER) (test pcrz=615) 87.5 fL 79.0-92.2 MEAN CORPUSCULAR HEMOGLOBIN (BEAKER) (test 26.8 pg 25.7-32.2 yyrh=312) MEAN CORPUSCULAR HEMOGLOBIN CONC (BEAKER) (test 30.6 GM/DL 32.3-36.5 eluk=866) RED CELL DISTRIBUTION WIDTH (BEAKER) (test 14.0 % 11.6-14.4 kikf=076) PLATELET COUNT (BEAKER) (test iclv=278) 363 K/CU MM 150-450 MEAN PLATELET VOLUME (BEAKER) (test culm=851) 9.8 fL 9.4-12.4 NUCLEATED RED BLOOD CELLS (BEAKER) (test 0 /100 WBC 0-0 qtrk=028) POCT-GLUCOSE [id number] 21:12:00 Test Item Value Reference Range Comments POC-GLUCOSE METER (BEAKER) 184 mg/dL 70-110 TESTED AT [address] (test qmub=3932) [place] [id number] POCT-GLUCOSE [id number] 17:54:00 Test Item Value Reference Range Comments POC-GLUCOSE METER (BEAKER) 98 mg/dL 70-110 TESTED AT [address] (test kfex=8657) [place] [address] POCT-GLUCOSE [id number] 12:44:00 Test Item Value Reference Range Comments POC-GLUCOSE METER (BEAKER) 122 mg/dL 70-110 TESTED AT [address] (test dttu=3426) [facility] [address] POCT-GLUCOSE [id number] 07:15:00 Test Item Value Reference Range Comments POC-GLUCOSE METER (BEAKER) 108 mg/dL 70-110 TESTED AT [address] (test qrrx=0109) [facility] [address] BASIC METABOLIC [id number] 06:51:00 Test Item Value Reference Range Comments SODIUM (BEAKER) (test 137 meq/L 136-145 xncz=483) POTASSIUM (BEAKER) (test 4.4 meq/L 3.5-5.1 ojpo=208) CHLORIDE (BEAKER) (test 104 meq/L 98-107 qamv=149) CO2 (BEAKER) (test 25 meq/L 22-29 abct=631) BLOOD UREA NITROGEN 24 mg/dL 7-21 (BEAKER) (test tbor=879) CREATININE (BEAKER) (test 1.35 mg/dL 0.57-1.25 lzyo=639) GLUCOSE RANDOM (BEAKER) 101 mg/dL 70-105 (test duaq=973) CALCIUM (BEAKER) (test 9.2 mg/dL 8.4-10.2 dzzv=816) EGFR (BEAKER) (test 53 mL/min/1.73 sq m ESTIMATED GFR IS NOT ofgu=2383) ACCURATE CREATININE CLEARANCE IN PREDICTING GLOMERULAR FILTRATION RATE. ESTIMATED GFR IS NOT APPLICABLE FOR DIALYSIS PATIENTS. CBC (HEMOGRAM ONLY)2017-09-09 06:19:00 Test Item Value Reference Range Comments WHITE BLOOD CELL COUNT (BEAKER) (test gjtc=426) 7.1 K/ L 3.5-10.5 RED BLOOD CELL COUNT (BEAKER) (test bvtn=849) 4.59 M/ L 4.63-6.08 HEMOGLOBIN (BEAKER) (test vtdn=957) 12.4 GM/DL 13.7-17.5 HEMATOCRIT (BEAKER) (test vxvy=557) 39.6 % 40.1-51.0 MEAN CORPUSCULAR VOLUME (BEAKER) (test wlmz=160) 86.3 fL 79.0-92.2 MEAN CORPUSCULAR HEMOGLOBIN (BEAKER) (test 27.0 pg 25.7-32.2 jdix=637) MEAN CORPUSCULAR HEMOGLOBIN CONC (BEAKER) (test 31.3 GM/DL 32.3-36.5 lcmb=217) RED CELL DISTRIBUTION WIDTH (BEAKER) (test 14.1 % 11.6-14.4 gqoj=926) PLATELET COUNT (BEAKER) (test nbem=927) 421 K/CU MM 150-450 MEAN PLATELET VOLUME (BEAKER) (test rujx=477) 9.8 fL 9.4-12.4 NUCLEATED RED BLOOD CELLS (BEAKER) (test 0 /100 WBC 0-0 dhfo=272) POCT-GLUCOSE [id number] 00:13:00 Test Item Value Reference Range Comments POC-GLUCOSE METER (BEAKER) 148 mg/dL 70-110 TESTED AT [facility] [address] [facility] (test cgdl=1145) [facility] [address] HEPATIC FUNCTION [id number] 22:39:00 Test Item Value Reference Range Comments TOTAL PROTEIN (BEAKER) (test alqx=745) 7.2 gm/dL 6.0-8.3 ALBUMIN (BEAKER) (test inny=9794) 3.9 g/dL 3.5-5.0 BILIRUBIN TOTAL (BEAKER) (test nxsh=937) < mg/dL 0.2-1.2 BILIRUBIN DIRECT (BEAKER) (test nkoh=983) 0.2 mg/dL 0.1-0.5 ALKALINE PHOSPHATASE (BEAKER) (test wcwo=006) 114 U/L 40-150 AST (SGOT) (BEAKER) (test vfal=764) 15 U/L 5-34 ALT (SGPT) (BEAKER) (test krzt=608) 15 U/L 6-55 [id number] 22:39:00 Test Item Value Reference Range Comments MAGNESIUM (BEAKER) (test vewa=003) 2.0 mg/dL 1.6-2.6 [id number] 22:39:00 Test Item Value Reference Range Comments PHOSPHORUS (BEAKER) (test rohw=398) 3.4 mg/dL 2.3-4.7 BASIC METABOLIC [id number] 22:38:00 Test Item Value Reference Range Comments SODIUM (BEAKER) (test 138 meq/L 136-145 wlbr=141) POTASSIUM (BEAKER) (test 4.5 meq/L 3.5-5.1 ridu=750) CHLORIDE (BEAKER) (test 101 meq/L 98-107 iogh=953) CO2 (BEAKER) (test 27 meq/L 22-29 imwn=787) BLOOD UREA NITROGEN 27 mg/dL 7-21 (BEAKER) (test dglj=678) CREATININE (BEAKER) (test 1.65 mg/dL 0.57-1.25 acce=279) GLUCOSE RANDOM (BEAKER) 191 mg/dL 70-105 (test ecup=404) CALCIUM (BEAKER) (test 9.6 mg/dL 8.4-10.2 kkob=397) EGFR (BEAKER) (test 42 mL/min/1.73 sq m ESTIMATED GFR IS NOT vdyi=6428) ACCURATE CREATININE CLEARANCE IN PREDICTING GLOMERULAR FILTRATION RATE. ESTIMATED GFR IS NOT APPLICABLE FOR DIALYSIS PATIENTS. [id number] 22:33:00 Test Item Value Reference Range Comments PROTIME (BEAKER) (test bzjk=767) 15.6 seconds 11.7-14.7 INR (BEAKER) (test scmp=768) 1.3 <=5.9 PARTIAL THROMBOPLASTIN TIME (BEAKER) (test 35.9 seconds 22.5-36.0 hqha=446) RECOMMENDED COUMADIN/WARFARIN INR THERAPY RANGESSTANDARD DOSE: 2.0 - 3.0 Includes: PROPHYLAXIS forvenous thrombosis, systemic embolization; TREATMENT for venous thrombosis and/or pulmonary embolus.HIGH RISK: Target INR is 2.5-3.5 for patients with mechanical heart valves.CBC W/PLT COUNT & AUTO [id number] 22:22:00 Test Item Value Reference Range Comments WHITE BLOOD CELL COUNT (BEAKER) (test tant=214) 8.1 K/ L 3.5-10.5 RED BLOOD CELL COUNT (BEAKER) (test jfhb=073) 4.66 M/ L 4.63-6.08 HEMOGLOBIN (BEAKER) (test eycz=358) 12.6 GM/DL 13.7-17.5 HEMATOCRIT (BEAKER) (test nzkh=382) 40.7 % 40.1-51.0 MEAN CORPUSCULAR VOLUME (BEAKER) (test rqro=706) 87.3 fL 79.0-92.2 MEAN CORPUSCULAR HEMOGLOBIN (BEAKER) (test 27.0 pg 25.7-32.2 jfyk=220) MEAN CORPUSCULAR HEMOGLOBIN CONC (BEAKER) (test 31.0 GM/DL 32.3-36.5 pdej=574) RED CELL DISTRIBUTION WIDTH (BEAKER) (test 14.1 % 11.6-14.4 okou=275) PLATELET COUNT (BEAKER) (test gogy=558) 438 K/CU MM 150-450 MEAN PLATELET VOLUME (BEAKER) (test ubls=770) 10.2 fL 9.4-12.4 NUCLEATED RED BLOOD CELLS (BEAKER) (test 0 /100 WBC 0-0 xqcl=297) NEUTROPHILS RELATIVE PERCENT (BEAKER) (test 68 % bnkv=232) LYMPHOCYTES RELATIVE PERCENT (BEAKER) (test 19 % jzqj=087) MONOCYTES RELATIVE PERCENT (BEAKER) (test 8 % creg=365) EOSINOPHILS RELATIVE PERCENT (BEAKER) (test 4 % wbwj=225) BASOPHILS RELATIVE PERCENT (BEAKER) (test 1 % wixn=879) NEUTROPHILS ABSOLUTE COUNT (BEAKER) (test 5.28 K/ L 1.78-5.38 dune=779) LYMPHOCYTES ABSOLUTE COUNT (BEAKER) (test 1.49 K/ L 1.32-3.57 edof=045) MONOCYTES ABSOLUTE COUNT (BEAKER) (test 0.60 K/ L 0.30-0.82 wwap=866) EOSINOPHILS ABSOLUTE COUNT (BEAKER) (test 0.29 K/ L 0.04-0.54 edwa=084) BASOPHILS ABSOLUTE COUNT (BEAKER) (test 0.00 K/ L 0.01-0.08 sikb=301) IMMATURE GRANULOCYTES-RELATIVE PERCENT (BEAKER) 0 % 0-1 (test onby=3931) POCT-GLUCOSE [id number] 12:18:00 Test Item Value Reference Range Comments POC-GLUCOSE METER (BEAKER) 190 mg/dL 70-110 TESTED AT [address] (test asor=0689) [place] [address] POCT-GLUCOSE [id number] 07:41:00 Test Item Value Reference Range Comments POC-GLUCOSE METER (BEAKER) 156 mg/dL 70-110 TESTED AT [address] (test tmxr=8949) [place] [address] BASIC METABOLIC [id number] 06:53:00 Test Item Value Reference Range Comments SODIUM (BEAKER) (test 137 meq/L 136-145 lzjj=594) POTASSIUM (BEAKER) (test 4.1 meq/L 3.5-5.1 khtl=148) CHLORIDE (BEAKER) (test 104 meq/L 98-107 tpds=554) CO2 (BEAKER) (test 25 meq/L 22-29 ycab=653) BLOOD UREA NITROGEN 21 mg/dL 7-21 (BEAKER) (test redj=464) CREATININE (BEAKER) (test 1.22 mg/dL 0.57-1.25 wupo=264) GLUCOSE RANDOM (BEAKER) 125 mg/dL 70-105 (test pcju=799) CALCIUM (BEAKER) (test 8.6 mg/dL 8.4-10.2 bcpq=232) EGFR (BEAKER) (test 60 mL/min/1.73 sq m ESTIMATED GFR IS NOT tusm=3920) ACCURATE CREATININE CLEARANCE IN PREDICTING GLOMERULAR FILTRATION RATE. ESTIMATED GFR IS NOT APPLICABLE FOR DIALYSIS PATIENTS. CBC W/PLT COUNT & AUTO [id number] 06:15:00 Test Item Value Reference Range Comments WHITE BLOOD CELL COUNT (BEAKER) (test tqds=663) 8.1 K/ L 3.5-10.5 RED BLOOD CELL COUNT (BEAKER) (test qgjg=164) 3.52 M/ L 4.63-6.08 HEMOGLOBIN (BEAKER) (test cdot=697) 9.5 GM/DL 13.7-17.5 HEMATOCRIT (BEAKER) (test zsbt=187) 30.1 % 40.1-51.0 MEAN CORPUSCULAR VOLUME (BEAKER) (test doqq=891) 85.5 fL 79.0-92.2 MEAN CORPUSCULAR HEMOGLOBIN (BEAKER) (test 27.0 pg 25.7-32.2 yhii=246) MEAN CORPUSCULAR HEMOGLOBIN CONC (BEAKER) (test 31.6 GM/DL 32.3-36.5 ecfx=051) RED CELL DISTRIBUTION WIDTH (BEAKER) (test 13.7 % 11.6-14.4 korb=157) PLATELET COUNT (BEAKER) (test iszp=543) 312 K/CU MM 150-450 MEAN PLATELET VOLUME (BEAKER) (test hogd=778) 10.3 fL 9.4-12.4 NUCLEATED RED BLOOD CELLS (BEAKER) (test 0 /100 WBC 0-0 lilm=498) NEUTROPHILS RELATIVE PERCENT (BEAKER) (test 67 % xnet=304) LYMPHOCYTES RELATIVE PERCENT (BEAKER) (test 16 % ldfx=020) MONOCYTES RELATIVE PERCENT (BEAKER) (test 13 % udjt=625) EOSINOPHILS RELATIVE PERCENT (BEAKER) (test 2 % ynzb=781) BASOPHILS RELATIVE PERCENT (BEAKER) (test 1 % ezga=177) NEUTROPHILS ABSOLUTE COUNT (BEAKER) (test 5.40 K/ L 1.78-5.38 nlyn=333) LYMPHOCYTES ABSOLUTE COUNT (BEAKER) (test 1.32 K/ L 1.32-3.57 ogbl=325) MONOCYTES ABSOLUTE COUNT (BEAKER) (test 1.02 K/ L 0.30-0.82 jyfd=967) EOSINOPHILS ABSOLUTE COUNT (BEAKER) (test 0.13 K/ L 0.04-0.54 qhzv=736) BASOPHILS ABSOLUTE COUNT (BEAKER) (test 0.05 K/ L 0.01-0.08 bdth=269) IMMATURE GRANULOCYTES-RELATIVE PERCENT (BEAKER) 2 % 0-1 (test fsfe=2179) POCT-GLUCOSE [id number] 20:52:00 Test Item Value Reference Range Comments POC-GLUCOSE METER (BEAKER) 272 mg/dL 70-110 TESTED AT [facility] [address] [facility] (test uyqf=6512) [facility] [address] POCT-GLUCOSE [id number] 17:00:00 Test Item Value Reference Range Comments POC-GLUCOSE METER (BEAKER) 223 mg/dL 70-110 TESTED AT [address] (test xbbd=8873) [place] [id number] POCT-GLUCOSE [id number] 16:20:00 Test Item Value Reference Range Comments POC-GLUCOSE METER (BEAKER) 217 mg/dL 70-110 TESTED AT [address] (test owav=1612) [facility] [address] CBC W/PLT COUNT & AUTO [id number] 08:40:00 Test Item Value Reference Range Comments WHITE BLOOD CELL COUNT (BEAKER) (test uwxj=638) 8.1 K/ L 3.5-10.5 RED BLOOD CELL COUNT (BEAKER) (test otug=128) 3.74 M/ L 4.63-6.08 HEMOGLOBIN (BEAKER) (test iwlk=810) 10.4 GM/DL 13.7-17.5 HEMATOCRIT (BEAKER) (test wyqw=022) 32.5 % 40.1-51.0 MEAN CORPUSCULAR VOLUME (BEAKER) (test yrjc=702) 86.9 fL 79.0-92.2 MEAN CORPUSCULAR HEMOGLOBIN (BEAKER) (test 27.8 pg 25.7-32.2 ngca=458) MEAN CORPUSCULAR HEMOGLOBIN CONC (BEAKER) (test 32.0 GM/DL 32.3-36.5 tekr=326) RED CELL DISTRIBUTION WIDTH (BEAKER) (test 13.5 % 11.6-14.4 luvk=954) PLATELET COUNT (BEAKER) (test fcby=536) 280 K/CU MM 150-450 MEAN PLATELET VOLUME (BEAKER) (test ssgw=073) 11.2 fL 9.4-12.4 NUCLEATED RED BLOOD CELLS (BEAKER) (test 0 /100 WBC 0-0 lpie=444) NEUTROPHILS RELATIVE PERCENT (BEAKER) (test 69 % gota=201) LYMPHOCYTES RELATIVE PERCENT (BEAKER) (test 16 % qvgl=887) MONOCYTES RELATIVE PERCENT (BEAKER) (test 11 % kwdj=683) EOSINOPHILS RELATIVE PERCENT (BEAKER) (test 2 % uyfp=778) BASOPHILS RELATIVE PERCENT (BEAKER) (test 1 % vipn=706) NEUTROPHILS ABSOLUTE COUNT (BEAKER) (test 5.62 K/ L 1.78-5.38 cafk=153) LYMPHOCYTES ABSOLUTE COUNT (BEAKER) (test 1.27 K/ L 1.32-3.57 tcjp=123) MONOCYTES ABSOLUTE COUNT (BEAKER) (test 0.89 K/ L 0.30-0.82 fiky=361) EOSINOPHILS ABSOLUTE COUNT (BEAKER) (test 0.13 K/ L 0.04-0.54 vyra=072) BASOPHILS ABSOLUTE COUNT (BEAKER) (test 0.04 K/ L 0.01-0.08 tdyz=093) IMMATURE GRANULOCYTES-RELATIVE PERCENT (BEAKER) 2 % 0-1 (test gojl=2439) POCT-GLUCOSE [id number] 08:36:00 Test Item Value Reference Range Comments POC-GLUCOSE METER (BEAKER) 181 mg/dL 70-110 TESTED AT [address] (test hyxn=4075) [facility] [address] BASIC METABOLIC [id number] 07:41:00 Test Item Value Reference Range Comments SODIUM (BEAKER) (test 137 meq/L 136-145 echk=733) POTASSIUM (BEAKER) (test 4.4 meq/L 3.5-5.1 jltx=957) CHLORIDE (BEAKER) (test 105 meq/L 98-107 iper=138) CO2 (BEAKER) (test 24 meq/L 22-29 sarb=543) BLOOD UREA NITROGEN 23 mg/dL 7-21 (BEAKER) (test bdok=542) CREATININE (BEAKER) (test 1.20 mg/dL 0.57-1.25 klsu=970) GLUCOSE RANDOM (BEAKER) 160 mg/dL 70-105 (test zgkk=743) CALCIUM (BEAKER) (test 8.9 mg/dL 8.4-10.2 zlui=807) EGFR (BEAKER) (test 61 mL/min/1.73 sq m ESTIMATED GFR IS NOT flfs=0660) ACCURATE CREATININE CLEARANCE IN PREDICTING GLOMERULAR FILTRATION RATE. ESTIMATED GFR IS NOT APPLICABLE FOR DIALYSIS PATIENTS. POCT-GLUCOSE [id number] 00:30:00 Test Item Value Reference Range Comments POC-GLUCOSE METER (BEAKER) 202 mg/dL 70-110 TESTED AT [address] (test slii=2221) [facility] [address] POCT-GLUCOSE [id number] 17:02:00 Test Item Value Reference Range Comments POC-GLUCOSE METER (BEAKER) 173 mg/dL 70-110 TESTED AT [address] (test feiq=9718) [place] [address] POCT-GLUCOSE [id number] 12:37:00 Test Item Value Reference Range Comments POC-GLUCOSE METER (BEAKER) 242 mg/dL 70-110 TESTED AT [address] (test kvud=3110) [place] [id number] POCT-GLUCOSE [id number] 08:27:00 Test Item Value Reference Range Comments POC-GLUCOSE METER (BEAKER) 187 mg/dL 70-110 TESTED AT [address] (test vhpv=8292) [place] [address] POCT-GLUCOSE [id number] 21:35:00 Test Item Value Reference Range Comments POC-GLUCOSE METER (BEAKER) 211 mg/dL 70-110 TESTED AT [address] (test wiyi=7160) [facility] [address] POCT-GLUCOSE [id number] 17:00:00 Test Item Value Reference Range Comments POC-GLUCOSE METER (BEAKER) 216 mg/dL 70-110 TESTED AT [address] (test xojb=7692) [place] [id number] POCT-GLUCOSE [id number] 12:10:00 Test Item Value Reference Range Comments POC-GLUCOSE METER (BEAKER) 248 mg/dL 70-110 TESTED AT [address] (test noin=6991) [place] [id number] POCT-GLUCOSE [id number] 07:55:00 Test Item Value Reference Range Comments POC-GLUCOSE METER (BEAKER) 204 mg/dL 70-110 TESTED AT [address] (test groz=3897) [place] [id number] BASIC METABOLIC [id number] 07:38:00 Test Item Value Reference Range Comments SODIUM (BEAKER) (test 134 meq/L 136-145 blys=573) POTASSIUM (BEAKER) (test 4.0 meq/L 3.5-5.1 oqoz=661) CHLORIDE (BEAKER) (test 101 meq/L 98-107 iyct=610) CO2 (BEAKER) (test 24 meq/L 22-29 ysxz=491) BLOOD UREA NITROGEN 23 mg/dL 7-21 (BEAKER) (test idmo=437) CREATININE (BEAKER) (test 1.07 mg/dL 0.57-1.25 tmcl=046) GLUCOSE RANDOM (BEAKER) 173 mg/dL 70-105 (test nnzd=375) CALCIUM (BEAKER) (test 9.1 mg/dL 8.4-10.2 uppt=564) EGFR (BEAKER) (test 70 mL/min/1.73 sq m ESTIMATED GFR IS NOT kuja=6084) ACCURATE CREATININE CLEARANCE IN PREDICTING GLOMERULAR FILTRATION RATE. ESTIMATED GFR IS NOT APPLICABLE FOR DIALYSIS PATIENTS. CBC W/PLT COUNT & AUTO [id number] 07:16:00 Test Item Value Reference Range Comments WHITE BLOOD CELL COUNT (BEAKER) (test ecjs=325) 10.0 K/ L 3.5-10.5 RED BLOOD CELL COUNT (BEAKER) (test zsqw=769) 3.66 M/ L 4.63-6.08 HEMOGLOBIN (BEAKER) (test utpm=819) 10.2 GM/DL 13.7-17.5 HEMATOCRIT (BEAKER) (test jblk=886) 31.3 % 40.1-51.0 MEAN CORPUSCULAR VOLUME (BEAKER) (test gclc=842) 85.5 fL 79.0-92.2 MEAN CORPUSCULAR HEMOGLOBIN (BEAKER) (test 27.9 pg 25.7-32.2 oyfq=287) MEAN CORPUSCULAR HEMOGLOBIN CONC (BEAKER) (test 32.6 GM/DL 32.3-36.5 kgeu=272) RED CELL DISTRIBUTION WIDTH (BEAKER) (test 13.2 % 11.6-14.4 zrsx=933) PLATELET COUNT (BEAKER) (test scfo=879) 234 K/CU MM 150-450 MEAN PLATELET VOLUME (BEAKER) (test uqki=422) 10.5 fL 9.4-12.4 NUCLEATED RED BLOOD CELLS (BEAKER) (test 0 /100 WBC 0-0 imex=059) NEUTROPHILS RELATIVE PERCENT (BEAKER) (test 76 % qnng=400) LYMPHOCYTES RELATIVE PERCENT (BEAKER) (test 12 % skqd=216) MONOCYTES RELATIVE PERCENT (BEAKER) (test 9 % mtgu=297) EOSINOPHILS RELATIVE PERCENT (BEAKER) (test 1 % mhbk=251) BASOPHILS RELATIVE PERCENT (BEAKER) (test 0 % kawf=588) NEUTROPHILS ABSOLUTE COUNT (BEAKER) (test 7.55 K/ L 1.78-5.38 ccca=714) LYMPHOCYTES ABSOLUTE COUNT (BEAKER) (test 1.23 K/ L 1.32-3.57 zrcc=145) MONOCYTES ABSOLUTE COUNT (BEAKER) (test 0.94 K/ L 0.30-0.82 wpix=029) EOSINOPHILS ABSOLUTE COUNT (BEAKER) (test 0.11 K/ L 0.04-0.54 amfu=327) BASOPHILS ABSOLUTE COUNT (BEAKER) (test 0.03 K/ L 0.01-0.08 wmee=695) IMMATURE GRANULOCYTES-RELATIVE PERCENT (BEAKER) 1 % 0-1 (test svve=3420) POCT-GLUCOSE [id number] 23:19:00 Test Item Value Reference Range Comments POC-GLUCOSE METER (BEAKER) 200 mg/dL 70-110 TESTED AT [address] (test mqdj=7960) [place] [address] POCT-GLUCOSE [id number] 16:39:00 Test Item Value Reference Range Comments POC-GLUCOSE METER (BEAKER) 235 mg/dL 70-110 TESTED AT [address] (test ojxg=4196) [place] [address] HEMOGLOBIN [id number] 14:53:00 Test Item Value Reference Range Comments HEMOGLOBIN A1C (BEAKER) (test emui=955) 7.5 % 4.3-6.1 POCT-GLUCOSE [id number] 11:54:00 Test Item Value Reference Range Comments POC-GLUCOSE METER (BEAKER) 208 mg/dL 70-110 TESTED AT [address] (test dllg=2180) [place] [address] RAD, CHEST, 1 VIEW, NON [id number] 08:11:00while patient is intubated or has chest tubes.Reason for exam:->s/p sternotomyShould this be performed at the bedside?->YesFINAL REPORT Chest one view AP 2016 8:10 AM CLINICAL INDICATION: s/p sternotomy COMPARISON: 08/19/2017 IMPRESSION: Cardiomediastinal contours are stable. Opacity in the left lower lung suggest atelectasis. The right lung is well aerated. The central pulmonary vasculature is not engorged. Remaining support hardware is unchanged in position. No pneumothorax is evident. Signed: Dread Lisa Verified Date/Time: 08/20/2017 08:11:17 Reading Location: [facility] C013V Neuro Reading Room POCT-GLUCOSE [id number] 07:44:00 Test Item Value Reference Range Comments POC-GLUCOSE METER (BEAKER) 188 mg/dL 70-110 TESTED AT [facility] [address] [facility] (test iiab=7773) [facility] [address] CBC W/PLT COUNT & AUTO [id number] 07:08:00 Test Item Value Reference Range Comments WHITE BLOOD CELL COUNT (BEAKER) (test qpiz=279) 9.8 K/ L 3.5-10.5 RED BLOOD CELL COUNT (BEAKER) (test fpzj=128) 3.93 M/ L 4.63-6.08 HEMOGLOBIN (BEAKER) (test dfpl=572) 10.8 GM/DL 13.7-17.5 HEMATOCRIT (BEAKER) (test vswt=714) 33.9 % 40.1-51.0 MEAN CORPUSCULAR VOLUME (BEAKER) (test hljh=537) 86.3 fL 79.0-92.2 MEAN CORPUSCULAR HEMOGLOBIN (BEAKER) (test 27.5 pg 25.7-32.2 wxnv=491) MEAN CORPUSCULAR HEMOGLOBIN CONC (BEAKER) (test 31.9 GM/DL 32.3-36.5 fqgo=926) RED CELL DISTRIBUTION WIDTH (BEAKER) (test 13.3 % 11.6-14.4 nipd=575) PLATELET COUNT (BEAKER) (test juqk=412) 208 K/CU MM 150-450 MEAN PLATELET VOLUME (BEAKER) (test ykcx=168) 10.9 fL 9.4-12.4 NUCLEATED RED BLOOD CELLS (BEAKER) (test 0 /100 WBC 0-0 mcmf=365) NEUTROPHILS RELATIVE PERCENT (BEAKER) (test 77 % gzvl=325) LYMPHOCYTES RELATIVE PERCENT (BEAKER) (test 13 % rmsv=834) MONOCYTES RELATIVE PERCENT (BEAKER) (test 8 % ztog=985) EOSINOPHILS RELATIVE PERCENT (BEAKER) (test 1 % mtqt=899) BASOPHILS RELATIVE PERCENT (BEAKER) (test 0 % iezy=690) NEUTROPHILS ABSOLUTE COUNT (BEAKER) (test 7.53 K/ L 1.78-5.38 rmag=387) LYMPHOCYTES ABSOLUTE COUNT (BEAKER) (test 1.28 K/ L 1.32-3.57 umta=608) MONOCYTES ABSOLUTE COUNT (BEAKER) (test 0.80 K/ L 0.30-0.82 gksi=507) EOSINOPHILS ABSOLUTE COUNT (BEAKER) (test 0.05 K/ L 0.04-0.54 dckb=421) BASOPHILS ABSOLUTE COUNT (BEAKER) (test 0.02 K/ L 0.01-0.08 lajc=591) IMMATURE GRANULOCYTES-RELATIVE PERCENT (BEAKER) 1 % 0-1 (test eggp=7445) BASIC METABOLIC [id number] 06:24:00 Test Item Value Reference Range Comments SODIUM (BEAKER) (test 134 meq/L 136-145 bazq=548) POTASSIUM (BEAKER) (test 4.6 meq/L 3.5-5.1 Specimen slightly epzo=695) hemolyzed CHLORIDE (BEAKER) (test 103 meq/L 98-107 bicm=301) CO2 (BEAKER) (test 23 meq/L 22-29 qtjl=941) BLOOD UREA NITROGEN 24 mg/dL 7-21 (BEAKER) (test reqb=013) CREATININE (BEAKER) (test 1.20 mg/dL 0.57-1.25 Specimen slightly wsnl=520) hemolyzed GLUCOSE RANDOM (BEAKER) 162 mg/dL 70-105 (test eeep=637) CALCIUM (BEAKER) (test 8.7 mg/dL 8.4-10.2 tcov=967) EGFR (BEAKER) (test 61 mL/min/1.73 sq m ESTIMATED GFR IS NOT siwq=1586) ACCURATE CREATININE CLEARANCE IN PREDICTING GLOMERULAR FILTRATION RATE. ESTIMATED GFR IS NOT APPLICABLE FOR DIALYSIS PATIENTS. POCT-GLUCOSE [id number] 22:52:00 Test Item Value Reference Range Comments POC-GLUCOSE METER (BEAKER) 170 mg/dL 70-110 TESTED AT [address] (test febx=6860) [place] [id number] POCT-GLUCOSE [id number] 17:03:00 Test Item Value Reference Range Comments POC-GLUCOSE METER (BEAKER) 221 mg/dL 70-110 TESTED AT [address] (test afwf=2294) [place] [id number] PLATELET AGGREGATION: FUNCTION [id number] 15:59:00 Test Item Value Reference Range Comments WEAK ADP RESULT(BEAKER) 39 % 60-91 Specimen icteric (test qfhn=2304) PLATELET FUNCTION SCREEN 0-39% indicates marked INTERP (BEAKER) (test platelet dysfunction eybj=4947) [id number] Fanny Hansen MD ([facility]) (test vjlo=5876) (electronic signature) PLATELET COUNT AGG 324 K/CU MM 150-450 (BEAKER) (test tmjc=1155) Platelet Function Screen results may be falsely low with platelet counts<100, 000/cu mm.POCT-GLUCOSE [id number] 11:11:00 Test Item Value Reference Range Comments POC-GLUCOSE METER (BEAKER) 172 mg/dL 70-110 TESTED AT [address] (test ohwc=3446) [place] [address] POCT-GLUCOSE [id number] 08:06:00 Test Item Value Reference Range Comments POC-GLUCOSE METER (BEAKER) 174 mg/dL 70-110 TESTED AT [address] (test kdzn=8650) [place] [address] [id number] 06:55:00 Test Item Value Reference Range Comments ACTIVATED CLOTTING TIME 120 sec TESTED AT [address] (BEAKER) (test esoq=615) [place] [address] [id number] 06:55:00 Test Item Value Reference Range Comments ACTIVATED CLOTTING TIME 632 sec TESTED AT [address] (BEAKER) (test lfmr=491) [place] [address] [id number] 06:54:00 Test Item Value Reference Range Comments ACTIVATED CLOTTING TIME 538 sec TESTED AT [address] ([facility]) (test doxs=778) [place] [address] CBC W/PLT COUNT & AUTO [id number] 06:50:00 Test Item Value Reference Range Comments WHITE BLOOD CELL COUNT (BEAKER) (test amcj=552) 9.9 K/ L 3.5-10.5 RED BLOOD CELL COUNT (BEAKER) (test pnkb=042) 3.94 M/ L 4.63-6.08 HEMOGLOBIN (BEAKER) (test szie=173) 10.9 GM/DL 13.7-17.5 HEMATOCRIT (BEAKER) (test jucf=125) 34.0 % 40.1-51.0 MEAN CORPUSCULAR VOLUME (BEAKER) (test peyf=296) 86.3 fL 79.0-92.2 MEAN CORPUSCULAR HEMOGLOBIN (BEAKER) (test 27.7 pg 25.7-32.2 szik=888) MEAN CORPUSCULAR HEMOGLOBIN CONC (BEAKER) (test 32.1 GM/DL 32.3-36.5 bcnd=215) RED CELL DISTRIBUTION WIDTH (BEAKER) (test 13.4 % 11.6-14.4 wrfv=621) PLATELET COUNT (BEAKER) (test csvb=970) 221 K/CU MM 150-450 MEAN PLATELET VOLUME (BEAKER) (test crjc=169) 10.5 fL 9.4-12.4 NUCLEATED RED BLOOD CELLS (BEAKER) (test 0 /100 WBC 0-0 rijv=650) NEUTROPHILS RELATIVE PERCENT (BEAKER) (test 77 % hnbi=614) LYMPHOCYTES RELATIVE PERCENT (BEAKER) (test 11 % tzna=327) MONOCYTES RELATIVE PERCENT (BEAKER) (test 11 % ctos=553) EOSINOPHILS RELATIVE PERCENT (BEAKER) (test 0 % nqdx=867) BASOPHILS RELATIVE PERCENT (BEAKER) (test 0 % gcsw=666) NEUTROPHILS ABSOLUTE COUNT (BEAKER) (test 7.55 K/ L 1.78-5.38 gkqx=596) LYMPHOCYTES ABSOLUTE COUNT (BEAKER) (test 1.10 K/ L 1.32-3.57 zmqq=973) MONOCYTES ABSOLUTE COUNT (BEAKER) (test 1.09 K/ L 0.30-0.82 caqg=254) EOSINOPHILS ABSOLUTE COUNT (BEAKER) (test 0.01 K/ L 0.04-0.54 copz=208) BASOPHILS ABSOLUTE COUNT (BEAKER) (test 0.03 K/ L 0.01-0.08 vanl=530) IMMATURE GRANULOCYTES-RELATIVE PERCENT (BEAKER) 1 % 0-1 (test aljy=9879) [id number] 06:18:00 Test Item Value Reference Range Comments PHOSPHORUS (BEAKER) (test jipc=760) 3.0 mg/dL 2.3-4.7 [id number] 06:18:00 Test Item Value Reference Range Comments MAGNESIUM (BEAKER) (test dpze=671) 1.9 mg/dL 1.6-2.6 BASIC METABOLIC [id number] 06:18:00 Test Item Value Reference Range Comments SODIUM (BEAKER) (test 138 meq/L 136-145 lvnz=133) POTASSIUM (BEAKER) (test 4.4 meq/L 3.5-5.1 wixm=920) CHLORIDE (BEAKER) (test 109 meq/L 98-107 nyqk=528) CO2 (BEAKER) (test 22 meq/L 22-29 lzlp=335) BLOOD UREA NITROGEN 22 mg/dL 7-21 (BEAKER) (test ccmo=117) CREATININE (BEAKER) (test 1.15 mg/dL 0.57-1.25 cqll=603) GLUCOSE RANDOM (BEAKER) 124 mg/dL 70-105 (test vvpc=888) CALCIUM (BEAKER) (test 8.5 mg/dL 8.4-10.2 iecs=414) EGFR (BEAKER) (test 64 mL/min/1.73 sq m ESTIMATED GFR IS NOT eynx=1497) ACCURATE CREATININE CLEARANCE IN PREDICTING GLOMERULAR FILTRATION RATE. ESTIMATED GFR IS NOT APPLICABLE FOR DIALYSIS PATIENTS. LACTIC ACID, ARTERIAL, WHOLE [id number] 05:54:00 Test Item Value Reference Range Comments LACTATE BLOOD ARTERIAL (2) (BEAKER) (test 0.9 mmol/L 0.5-2.2 zakk=3488) Effective 03/17/2016: Units/Reference Range ChangeNew: 0.5-2.2 mmol/L Previous: 5 -20 mg/dLOXYGEN SATURATION, [id number] 05:27:00 Test Item Value Reference Range Comments O2 SATURATION (MEASURED) (BEAKER) (test xqnd=3142) 72.3 % CALCIUM, [id number] 05:27:00 Test Item Value Reference Range Comments CALCIUM IONIZED (BEAKER) (test cazo=777) 1.17 mmol/L 1.12-1.27 PH, BLOOD (BEAKER) (test jrmf=2015) 7.35 RAD, CHEST, 1 VIEW, NON [id number] 04:54:00while patient is intubated or has chest tubes.Reason for exam:->s/p sternotomyShould this be performed at the bedside?->YesFINAL REPORT RAD, CHEST, 1 VIEW, NON DEPT INDICATION: s/p sternotomy COMPARISON: Prior day's exam FINDINGS: Portable frontal view of the chest. IMPRESSION: Support Lines: Interval extubation and removal of the enteric tube. Thoracic drainage catheters are stable. A right IJ central venous catheter terminates over the superior vena cava. Lungs and pleura: Scattered subsegmental atelectasis noted bilaterally. No focal airspace disease. No visible pneumothorax.Heart and mediastinum: Trace residual pneumomediastinum along the left cardiac border. Stable surgical changes.Additional findings: None. Signed: JR Clancy Robert MDReport Verified Date/Time: 08/19/2017 04:54:09 Reading Location: [address] Reading Room Electronically signed by: YOSVANY CLANCY on 04:54 AMPOCT-GLUCOSE [id number] 04:30:00 Test Item Value Reference Range Comments POC-GLUCOSE METER (BEAKER) 90 mg/dL 70-110 TESTED AT [address] (test rchp=2654) [facility] [address] POCT-GLUCOSE [id number] 23:44:00 Test Item Value Reference Range Comments POC-GLUCOSE METER (BEAKER) 135 mg/dL 70-110 TESTED AT [address] (test tcbu=5113) [facility] [address] POCT-GLUCOSE [id number] 18:46:00 Test Item Value Reference Range Comments POC-GLUCOSE METER (BEAKER) 181 mg/dL 70-110 TESTED AT [address] (test imiq=4289) [facility] [address] POCT-GLUCOSE [id number] 18:46:00 Test Item Value Reference Range Comments POC-GLUCOSE METER (BEAKER) 193 mg/dL 70-110 TESTED AT [address] (test ifno=6466) [facility] [address] POCT-GLUCOSE [id number] 18:35:00 Test Item Value Reference Range Comments POC-GLUCOSE METER (BEAKER) 188 mg/dL 70-110 TESTED AT [facility] [address] [facility] (test doik=4633) [facility] [address] [id number] 15:41:00 Test Item Value Reference Range Comments FIBRINOGEN LEVEL (BEAKER) (test ahtz=888) 350 mg/dl 225-434 [id number] 15:41:00 Test Item Value Reference Range Comments PARTIAL THROMBOPLASTIN TIME (BEAKER) (test 32.7 seconds 22.5-36.0 mktm=813) PROTHROMBIN TIME/[id number] 15:40:00 Test Item Value Reference Range Comments PROTIME (BEAKER) (test lnsf=406) 15.3 seconds 11.7-14.7 INR (BEAKER) (test wjyu=848) 1.2 <=5.9 RECOMMENDED COUMADIN/WARFARIN INR THERAPY RANGESSTANDARD DOSE: 2.0 - 3.0 Includes: PROPHYLAXIS forvenous thrombosis, systemic embolization; TREATMENT for venous thrombosis and/or pulmonary embolus.HIGH RISK: Target INR is 2.5-3.5 for patients with mechanical heart valves.BLOOD GAS, [id number] 15:14:00 Test Item Value Reference Range Comments PH ARTERIAL (BEAKER) (test noxm=861) 7.36 7.35-7.45 PCO2 ARTERIAL (BEAKER) (test rzcb=126) 40 mmHg 35-45 PO2 ARTERIAL (BEAKER) (test ixlt=485) 102 mmHg 80-90 O2 SATURATION ARTERIAL (BEAKER) (test smtv=064) 97.5 % 96.0-97.0 HCO3 ARTERIAL (BEAKER) (test bmqo=006) 22 mmol/L 21-29 BASE EXCESS ARTERIAL (BEAKER) (test qdmo=432) -3.1 mmol/L -2.0-3.0 PATIENT TEMPERATURE (BEAKER) (test nuho=0932) 36.9 C FIO2 (BEAKER) (test icqt=6171) 40.0 % GLUCOSE-STAT [id number] 15:14:00 Test Item Value Reference Range Comments GLUCOSE RANDOM (BEAKER) (test cykb=155) 213 mg/dL 70-110 POTASSIUM-STAT [id number] 15:13:00 Test Item Value Reference Range Comments POTASSIUM (BEAKER) (test skfz=249) 4.8 meq/L 3.6-5.5 RAD, CHEST, 1 VIEW, NON [id number] 12:57:00Reason for exam:->S/p CABG with chest tubes and intubatedShould this be performed at the bedside?-> YesFINAL REPORT Chest one view compared to August 17 Discussion: IABP marker at the aortic knob. Tubes are in place with no grossly atypical positioning. There is pulmonary congestion with sternotomy changes. No gross effusion or pneumothorax. Signed: Alannah Niño VerifiedDate/Time : 08/18/2017 12:57:17 Reading Location: [facility] Radiology Reading Room CBC W/ PLT COUNT & AUTO [id number] 12:37:00 Test Item Value Reference Range Comments WHITE BLOOD CELL COUNT (BEAKER) (test xsef=751) 15.0 K/ L 3.5-10.5 RED BLOOD CELL COUNT (BEAKER) (test clug=887) 4.81 M/ L 4.63-6.08 HEMOGLOBIN (BEAKER) (test plns=456) 13.2 GM/DL 13.7-17.5 HEMATOCRIT (BEAKER) (test yqkd=049) 39.8 % 40.1-51.0 MEAN CORPUSCULAR VOLUME (BEAKER) (test ghaq=792) 82.7 fL 79.0-92.2 MEAN CORPUSCULAR HEMOGLOBIN (BEAKER) (test 27.4 pg 25.7-32.2 nsri=148) MEAN CORPUSCULAR HEMOGLOBIN CONC (BEAKER) (test 33.2 GM/DL 32.3-36.5 lwov=331) RED CELL DISTRIBUTION WIDTH (BEAKER) (test 13.2 % 11.6-14.4 iyav=738) PLATELET COUNT (BEAKER) (test jadl=527) 275 K/CU MM 150-450 MEAN PLATELET VOLUME (BEAKER) (test gbbt=882) 10.6 fL 9.4-12.4 NUCLEATED RED BLOOD CELLS (BEAKER) (test 0 /100 WBC 0-0 imbr=654) NEUTROPHILS RELATIVE PERCENT (BEAKER) (test 80 % kxph=624) LYMPHOCYTES RELATIVE PERCENT (BEAKER) (test 14 % agmx=787) MONOCYTES RELATIVE PERCENT (BEAKER) (test 4 % bzfz=614) EOSINOPHILS RELATIVE PERCENT (BEAKER) (test 0 % tblj=596) BASOPHILS RELATIVE PERCENT (BEAKER) (test 0 % hzxg=966) NEUTROPHILS ABSOLUTE COUNT (BEAKER) (test 11.89 K/ L 1.78-5.38 kwcl=058) LYMPHOCYTES ABSOLUTE COUNT (BEAKER) (test 2.14 K/ L 1.32-3.57 snsq=974) MONOCYTES ABSOLUTE COUNT (BEAKER) (test 0.58 K/ L 0.30-0.82 cioz=981) EOSINOPHILS ABSOLUTE COUNT (BEAKER) (test 0.04 K/ L 0.04-0.54 mjre=870) BASOPHILS ABSOLUTE COUNT (BEAKER) (test 0.05 K/ L 0.01-0.08 bimu=304) IMMATURE GRANULOCYTES-RELATIVE PERCENT (BEAKER) 2 % 0-1 (test zmke=1077) [id number] 12:30:00 Test Item Value Reference Range Comments MAGNESIUM (BEAKER) (test 2.6 mg/dL 1.6-2.6 Specimen moderately hemolyzed ovne=228) [id number] 12:30:00 Test Item Value Reference Range Comments PHOSPHORUS (BEAKER) (test 4.1 mg/dL 2.3-4.7 Specimen moderately hemolyzed fzdn=546) BASIC METABOLIC [id number] 12:30:00 Test Item Value Reference Range Comments SODIUM (BEAKER) (test 136 meq/L 136-145 ztnc=331) POTASSIUM (BEAKER) (test 5.2 meq/L 3.5-5.1 Specimen moderately bzjm=378) hemolyzed CHLORIDE (BEAKER) (test 107 meq/L 98-107 wetq=890) CO2 (BEAKER) (test 20 meq/L 22-29 smse=075) BLOOD UREA NITROGEN 22 mg/dL 7-21 (BEAKER) (test ynmu=258) CREATININE (BEAKER) (test 1.14 mg/dL 0.57-1.25 Specimen moderately mljq=519) hemolyzed GLUCOSE RANDOM (BEAKER) 183 mg/dL 70-105 (test ohsv=331) CALCIUM (BEAKER) (test 9.8 mg/dL 8.4-10.2 efrc=969) EGFR (BEAKER) (test 65 mL/min/1.73 sq m ESTIMATED GFR IS NOT cdwd=9248) ACCURATE CREATININE CLEARANCE IN PREDICTING GLOMERULAR FILTRATION RATE. ESTIMATED GFR IS NOT APPLICABLE FOR DIALYSIS PATIENTS. LACTIC ACID, ARTERIAL, WHOLE [id number] 12:27:00 Test Item Value Reference Range Comments LACTATE BLOOD ARTERIAL (2) 1.7 mmol/L 0.5-2.2 Specimen slightly hemolyzed (BEAKER) (test lrkh=6092) Effective 03/17/2016: Units/Reference Range ChangeNew: 0.5-2.2 mmol/L Previous: 5 -20 mg/dLGLUCOSE-STAT [id number] 11:58:00 Test Item Value Reference Range Comments GLUCOSE RANDOM (BEAKER) (test pbim=347) 182 mg/dL 70-110 SODIUM NA-STAT [id number] 11:58:00 Test Item Value Reference Range Comments SODIUM (BEAKER) (test ohkb=563) 133 meq/L 135-148 HGB/HCT (H&H) - STAT [id number] 11:58:00 Test Item Value Reference Range Comments HEMOGLOBIN (BEAKER) (test evef=948) 14.8 g/dL 13.0-16.8 HEMATOCRIT (BEAKER) (test nifz=442) 44.0 % 40.0-50.0 OXYGEN SATURATION, [id number] 11:57:00 Test Item Value Reference Range Comments O2 SATURATION (MEASURED) (BEAKER) (test mknp=6403) 75.4 % CALCIUM, [id number] 11:57:00 Test Item Value Reference Range Comments CALCIUM IONIZED (BEAKER) (test bcgt=719) 1.31 mmol/L 1.12-1.27 PH, BLOOD (BEAKER) (test srit=0547) 7.35 POTASSIUM-STAT [id number] 11:57:00 Test Item Value Reference Range Comments POTASSIUM (BEAKER) (test gucj=015) 5.0 meq/L 3.6-5.5 BLOOD GAS, [id number] 11:57:00 Test Item Value Reference Range Comments PH ARTERIAL (BEAKER) (test jobn=848) 7.35 7.35-7.45 PCO2 ARTERIAL (BEAKER) (test kwsn=191) 37 mmHg 35-45 PO2 ARTERIAL (BEAKER) (test lvlf=555) 97 mmHg 80-90 O2 SATURATION ARTERIAL (BEAKER) (test itrz=975) 97.2 % 96.0-97.0 HCO3 ARTERIAL (BEAKER) (test jots=240) 20 mmol/L 21-29 BASE EXCESS ARTERIAL (BEAKER) (test pyoe=616) -5.1 mmol/L -2.0-3.0 PATIENT TEMPERATURE (BEAKER) (test vagk=5024) 36.7 C FIO2 (BEAKER) (test nsax=1859) 60.0 % THROMBOELASTOGRAPH (TEG)2017-08-18 11:15:00 Test Item Value Reference Range Comments TEG ACTIVATED CLOTTING TIME (BEAKER) (test 4.5 minutes 4.0-7.0 baqv=0897) TEG FIBRINOGEN ACTIVITY (BEAKER) (test 60.8 degrees 61.0-73.0 mkmr=5099) TEG PLT. AGGREGATION (BEAKER) (test tgtu=2433) 49.3 MM 55.0-65.0 TGH ACTIVATED CLOTTING TIME (BEAKER) (test 4.5 minutes 4.0-7.0 tptm=3508) TGH FIBRINOGEN ACTIVITY (BEAKER) (test 65.4 degrees 61.0-73.0 ihas=2487) TGH PLT. AGGREGATION (BEAKER) (test qjqh=0062) 52.6 MM 55.0-65.0 [id number] 10:57:00 Test Item Value Reference Range Comments FIBRINOGEN LEVEL (BEAKER) (test xzjf=849) 112 mg/dl 225-434 [id number] 10:48:00 Test Item Value Reference Range Comments PARTIAL THROMBOPLASTIN TIME (BEAKER) (test 64.0 seconds 22.5-36.0 hqas=085) PROTHROMBIN [id number] 10:47:00 Test Item Value Reference Range Comments PROTIME (BEAKER) (test cgnx=721) 25.6 seconds 11.7-14.7 INR (BEAKER) (test vstm=062) 2.3 <=5.9 RECOMMENDED COUMADIN/WARFARIN INR THERAPY RANGESSTANDARD DOSE: 2.0 - 3.0 Includes: PROPHYLAXIS forvenous thrombosis, systemic embolization; TREATMENT for venous thrombosis and/or pulmonary embolus.HIGH RISK: Target INR is 2.5-3.5 for patients with mechanical heart valves.PLATELET [id number] 10:36:00 Test Item Value Reference Range Comments PLATELET COUNT (BEAKER) (test apho=567) 80 K/CU MM 150-450 BLOOD GAS, [id number] 10:04:00 Test Item Value Reference Range Comments PH ARTERIAL (BEAKER) (test myqk=988) 7.36 7.35-7.45 PCO2 ARTERIAL (BEAKER) (test ypze=082) 37 mmHg 35-45 PO2 ARTERIAL (BEAKER) (test mpvs=860) 348 mmHg 80-90 O2 SATURATION ARTERIAL (BEAKER) (test yvnc=909) 99.7 % 96.0-97.0 HCO3 ARTERIAL (BEAKER) (test crwl=626) 21 mmol/L 21-29 BASE EXCESS ARTERIAL (BEAKER) (test jyix=888) -4.8 mmol/L -2.0-3.0 PATIENT TEMPERATURE (BEAKER) (test cmfm=9763) 35.7 C FIO2 (BEAKER) (test jdju=5273) 65.0 % CALCIUM, [id number] 10:04:00 Test Item Value Reference Range Comments CALCIUM IONIZED (BEAKER) (test hzrx=110) 0.98 mmol/L 1.12-1.27 PH, BLOOD (BEAKER) (test ogaa=3561) 7.34 GLUCOSE-STAT [id number] 10:04:00 Test Item Value Reference Range Comments GLUCOSE RANDOM (BEAKER) (test rzwa=639) 153 mg/dL 70-110 SODIUM NA-STAT [id number] 10:04:00 Test Item Value Reference Range Comments SODIUM (BEAKER) (test kpak=840) 133 meq/L 135-148 HGB/HCT (H&H) - STAT [id number] 10:04:00 Test Item Value Reference Range Comments HEMOGLOBIN (BEAKER) (test vimf=090) 10.9 g/dL 13.0-16.8 HEMATOCRIT (BEAKER) (test swqc=153) 32.0 % 40.0-50.0 POTASSIUM-STAT [id number] 10:03:00 Test Item Value Reference Range Comments POTASSIUM (BEAKER) (test zmjb=110) 4.7 meq/L 3.6-5.5 BLOOD GAS, [id number] 09:21:00 Test Item Value Reference Range Comments PH ARTERIAL (BEAKER) (test lims=209) 7.33 7.35-7.45 PCO2 ARTERIAL (BEAKER) (test wjmb=954) 40 mmHg 35-45 PO2 ARTERIAL (BEAKER) (test eojb=518) 340 mmHg 80-90 O2 SATURATION ARTERIAL (BEAKER) (test nenm=650) 99.7 % 96.0-97.0 HCO3 ARTERIAL (BEAKER) (test ejeg=413) 21 mmol/L 21-29 BASE EXCESS ARTERIAL (BEAKER) (test cxnx=863) -5.0 mmol/L -2.0-3.0 PATIENT TEMPERATURE (BEAKER) (test lcqv=2595) 34.7 C FIO2 (BEAKER) (test okbk=3196) 80.0 % SODIUM NA-STAT [id number] 09:21:00 Test Item Value Reference Range Comments SODIUM (BEAKER) (test orlw=938) 131 meq/L 135-148 GLUCOSE-STAT [id number] 09:21:00 Test Item Value Reference Range Comments GLUCOSE RANDOM (BEAKER) (test gdmn=024) 164 mg/dL 70-110 HGB/HCT (H&H) - STAT [id number] 09:21:00 Test Item Value Reference Range Comments HEMOGLOBIN (BEAKER) (test jqtp=479) 10.7 g/dL 13.0-16.8 HEMATOCRIT (BEAKER) (test tyaq=779) 31.0 % 40.0-50.0 PLATELET AGGREGATION: FUNCTION [id number] 09:19:00 Test Item Value Reference Range Comments WEAK ADP RESULT(BEAKER) (test 26 % 60-91 raby=2478) PLATELET FUNCTION SCREEN 0-39% indicates marked platelet INTERP (BEAKER) (test dysfunction aeeq=3725) [id number] Fanny Hansen MD (electronic (BEAKER) (test hpar=3540) signature) PLATELET COUNT AGG (BEAKER) 261 K/CU MM 150-450 (test swkt=3067) for patients on clopidogrel in past two weeksPOTASSIUM-STAT [id number] 09:17: 00 Test Item Value Reference Range Comments POTASSIUM (BEAKER) (test fxob=212) 4.8 meq/L 3.6-5.5 BLOOD GAS, [id number] 08:30:00 Test Item Value Reference Range Comments PH ARTERIAL (BEAKER) (test znmk=509) 7.37 7.35-7.45 PCO2 ARTERIAL (BEAKER) (test tymv=428) 37 mmHg 35-45 PO2 ARTERIAL (BEAKER) (test wgle=037) 243 mmHg 80-90 O2 SATURATION ARTERIAL (BEAKER) (test xfai=949) 99.5 % 96.0-97.0 HCO3 ARTERIAL (BEAKER) (test ruyc=870) 21 mmol/L 21-29 BASE EXCESS ARTERIAL (BEAKER) (test tttd=137) -4.0 mmol/L -2.0-3.0 PATIENT TEMPERATURE (BEAKER) (test emwi=9628) 36.3 C FIO2 (BEAKER) (test qpzs=6227) 80.0 % GLUCOSE-STAT [id number] 08:30:00 Test Item Value Reference Range Comments GLUCOSE RANDOM (BEAKER) (test xrlg=300) 180 mg/dL 70-110 SODIUM NA-STAT [id number] 08:28:00 Test Item Value Reference Range Comments SODIUM (BEAKER) (test iyhc=924) 137 meq/L 135-148 POTASSIUM-STAT [id number] 08:28:00 Test Item Value Reference Range Comments POTASSIUM (BEAKER) (test ajcl=275) 4.1 meq/L 3.6-5.5 HGB/HCT (H&H) - STAT [id number] 08:28:00 Test Item Value Reference Range Comments HEMOGLOBIN (BEAKER) (test dxac=955) 15.5 g/dL 13.0-16.8 HEMATOCRIT (BEAKER) (test lgaj=149) 46.0 % 40.0-50.0 [id number] 06:39:00 Test Item Value Reference Range Comments BLOOD UREA NITROGEN (BEAKER) (test jpmr=152) 25 mg/dL 7-21 On admission then every day until IABP removedOn admission then every day until IABP removedOn admission then every day until IABP removedHEPATIC FUNCTION [id number] 06:39:00 Test Item Value Reference Range Comments TOTAL PROTEIN (BEAKER) (test xsxs=646) 7.8 gm/dL 6.0-8.3 ALBUMIN (BEAKER) (test gnwo=3008) 4.2 g/dL 3.5-5.0 BILIRUBIN TOTAL (BEAKER) (test rzsl=640) 0.6 mg/dL 0.2-1.2 BILIRUBIN DIRECT (BEAKER) (test yodr=555) 0.2 mg/dL 0.1-0.5 ALKALINE PHOSPHATASE (BEAKER) (test itje=084) 71 U/L 40-150 AST (SGOT) (BEAKER) (test oifw=013) 68 U/L 5-34 ALT (SGPT) (BEAKER) (test iqwh=869) 31 U/L 6-55 On admission then every day until IABP removedOn admission then every day until IABP removedOn admission then every day until IABP [id number] 06:39:00 Test Item Value Reference Range Comments CREATININE (BEAKER) (test 1.28 mg/dL 0.57-1.25 aamg=479) EGFR (BEAKER) (test 57 mL/min/1.73 sq m ESTIMATED GFR IS NOT zbdn=9842) ACCURATE CREATININE CLEARANCE IN PREDICTING GLOMERULAR FILTRATION RATE. ESTIMATED GFR IS NOT APPLICABLE FOR DIALYSIS PATIENTS. On admission then every day until IABP removedOn admission then every day until IABP removedOn admission then every day until IABP [id number] 06:33: 00 Test Item Value Reference Range Comments PARTIAL THROMBOPLASTIN TIME (BEAKER) (test 62.3 seconds 22.5-36.0 igzs=214) LACTIC ACID, VENOUS, WHOLE [id number] 06:31:00 Test Item Value Reference Range Comments LACTATE BLOOD VENOUS (2) (BEAKER) (test 1.4 mmol/L 0.5-2.2 xmmb=9339) Effective 03/17/2016: Units/Reference Range ChangeNew: 0.5-2.2 mmol/L Previous: 5 -20 mg/dLOn admission then every day until IABP removedPROTHROMBIN TIME/[id number] 06:31:00 Test Item Value Reference Range Comments PROTIME (BEAKER) (test neqy=044) 17.0 seconds 11.7-14.7 INR (BEAKER) (test ldxy=534) 1.4 <=5.9 RECOMMENDED COUMADIN/WARFARIN INR THERAPY RANGESSTANDARD DOSE: 2.0 - 3.0 Includes: PROPHYLAXIS forvenous thrombosis, systemic embolization; TREATMENT for venous thrombosis and/or pulmonary embolus.HIGH RISK: Target INR is 2.5-3.5 for patients with mechanical heart valves.CBC W/PLT COUNT & AUTO [id number] 06:25:00 Test Item Value Reference Range Comments WHITE BLOOD CELL COUNT (BEAKER) (test gtqq=923) 11.3 K/ L 3.5-10.5 RED BLOOD CELL COUNT (BEAKER) (test dbsx=886) 5.91 M/ L 4.63-6.08 HEMOGLOBIN (BEAKER) (test aydf=313) 16.3 GM/DL 13.7-17.5 HEMATOCRIT (BEAKER) (test dend=913) 49.6 % 40.1-51.0 MEAN CORPUSCULAR VOLUME (BEAKER) (test zvpq=597) 83.9 fL 79.0-92.2 MEAN CORPUSCULAR HEMOGLOBIN (BEAKER) (test 27.6 pg 25.7-32.2 aecm=166) MEAN CORPUSCULAR HEMOGLOBIN CONC (BEAKER) (test 32.9 GM/DL 32.3-36.5 wsqu=731) RED CELL DISTRIBUTION WIDTH (BEAKER) (test 13.1 % 11.6-14.4 whsn=845) PLATELET COUNT (BEAKER) (test ixuv=627) 219 K/CU MM 150-450 MEAN PLATELET VOLUME (BEAKER) (test bqcb=304) 10.6 fL 9.4-12.4 NUCLEATED RED BLOOD CELLS (BEAKER) (test 0 /100 WBC 0-0 evvh=313) NEUTROPHILS RELATIVE PERCENT (BEAKER) (test 82 % vula=183) LYMPHOCYTES RELATIVE PERCENT (BEAKER) (test 11 % bfdg=561) MONOCYTES RELATIVE PERCENT (BEAKER) (test 6 % sfbj=982) EOSINOPHILS RELATIVE PERCENT (BEAKER) (test 0 % erbd=168) BASOPHILS RELATIVE PERCENT (BEAKER) (test 0 % urmx=636) NEUTROPHILS ABSOLUTE COUNT (BEAKER) (test 9.27 K/ L 1.78-5.38 hxxz=440) LYMPHOCYTES ABSOLUTE COUNT (BEAKER) (test 1.26 K/ L 1.32-3.57 vmhx=943) MONOCYTES ABSOLUTE COUNT (BEAKER) (test 0.63 K/ L 0.30-0.82 cozb=288) EOSINOPHILS ABSOLUTE COUNT (BEAKER) (test 0.00 K/ L 0.04-0.54 pevp=455) BASOPHILS ABSOLUTE COUNT (BEAKER) (test 0.03 K/ L 0.01-0.08 wohp=085) IMMATURE GRANULOCYTES-RELATIVE PERCENT (BEAKER) 1 % 0-1 (test yzyl=4175) BASIC METABOLIC [id number] 23:44:00 Test Item Value Reference Range Comments SODIUM (BEAKER) (test 138 meq/L 136-145 brrz=158) POTASSIUM (BEAKER) (test 4.3 meq/L 3.5-5.1 kptf=945) CHLORIDE (BEAKER) (test 103 meq/L 98-107 ncks=539) CO2 (BEAKER) (test 25 meq/L 22-29 hhsu=398) BLOOD UREA NITROGEN 26 mg/dL 7-21 (BEAKER) (test wxzq=747) CREATININE (BEAKER) (test 1.47 mg/dL 0.57-1.25 ytty=097) GLUCOSE RANDOM (BEAKER) 174 mg/dL 70-105 (test igbb=258) CALCIUM (BEAKER) (test 9.3 mg/dL 8.4-10.2 geil=842) EGFR (BEAKER) (test 48 mL/min/1.73 sq m ESTIMATED GFR IS NOT tmrx=9678) ACCURATE CREATININE CLEARANCE IN PREDICTING GLOMERULAR FILTRATION RATE. ESTIMATED GFR IS NOT APPLICABLE FOR DIALYSIS PATIENTS. CBC W/PLT COUNT & AUTO [id number] 23:42:00 Test Item Value Reference Range Comments WHITE BLOOD CELL COUNT (BEAKER) (test dcge=559) 10.7 K/ L 3.5-10.5 RED BLOOD CELL COUNT (BEAKER) (test mkwx=102) 5.93 M/ L 4.63-6.08 HEMOGLOBIN (BEAKER) (test meux=373) 16.5 GM/DL 13.7-17.5 HEMATOCRIT (BEAKER) (test govl=022) 49.7 % 40.1-51.0 MEAN CORPUSCULAR VOLUME (BEAKER) (test wpcz=943) 83.8 fL 79.0-92.2 MEAN CORPUSCULAR HEMOGLOBIN (BEAKER) (test 27.8 pg 25.7-32.2 adhv=224) MEAN CORPUSCULAR HEMOGLOBIN CONC (BEAKER) (test 33.2 GM/DL 32.3-36.5 atbb=191) RED CELL DISTRIBUTION WIDTH (BEAKER) (test 13.0 % 11.6-14.4 vxeu=894) PLATELET COUNT (BEAKER) (test qljr=706) 245 K/CU MM 150-450 MEAN PLATELET VOLUME (BEAKER) (test uziu=510) 9.9 fL 9.4-12.4 NUCLEATED RED BLOOD CELLS (BEAKER) (test 0 /100 WBC 0-0 ikiu=628) NEUTROPHILS RELATIVE PERCENT (BEAKER) (test 75 % bueg=542) LYMPHOCYTES RELATIVE PERCENT (BEAKER) (test 14 % nxff=652) MONOCYTES RELATIVE PERCENT (BEAKER) (test 9 % aywu=119) EOSINOPHILS RELATIVE PERCENT (BEAKER) (test 0 % gcli=745) BASOPHILS RELATIVE PERCENT (BEAKER) (test 0 % dbae=672) NEUTROPHILS ABSOLUTE COUNT (BEAKER) (test 8.05 K/ L 1.78-5.38 djcf=030) LYMPHOCYTES ABSOLUTE COUNT (BEAKER) (test 1.49 K/ L 1.32-3.57 poer=002) MONOCYTES ABSOLUTE COUNT (BEAKER) (test 0.94 K/ L 0.30-0.82 zlyk=331) EOSINOPHILS ABSOLUTE COUNT (BEAKER) (test 0.04 K/ L 0.04-0.54 kzls=624) BASOPHILS ABSOLUTE COUNT (BEAKER) (test 0.04 K/ L 0.01-0.08 rfps=913) IMMATURE GRANULOCYTES-RELATIVE PERCENT (BEAKER) 1 % 0-1 (test fbud=9466) PROTHROMBIN [id number] 23:36:00 Test Item Value Reference Range Comments PROTIME (BEAKER) (test mzbb=367) 14.9 seconds 11.7-14.7 INR (BEAKER) (test glim=379) 1.2 <=5.9 RECOMMENDED COUMADIN/WARFARIN INR THERAPY RANGESSTANDARD DOSE: 2.0 - 3.0 Includes: PROPHYLAXIS forvenous thrombosis, systemic embolization; TREATMENT for venous thrombosis and/or pulmonary embolus.HIGH RISK: Target INR is 2.5-3.5 for patients with mechanical heart valves.Prior to initiating [id number] 23:36:00 Test Item Value Reference Range Comments PARTIAL THROMBOPLASTIN TIME (BEAKER) (test 38.5 seconds 22.5-36.0 alsx=380) Prior to initiating heparinPLATELET [id number] 23:27:00 Test Item Value Reference Range Comments PLATELET COUNT (BEAKER) (test xnty=628) 245 K/CU MM 150-450 RAD, CHEST, 1 VIEW, NON [id number] 22:17:00Reason for exam:->IABP positionShould this be performed at the bedside?->YesFINAL REPORT RAD, CHEST, 1 VIEW, NON DEPT INDICATION: IABP position COMPARISON: Chest x-ray from six minutes ago TECHNIQUE: Single frontal view of the chest. IMPRESSION:IABP has been advanced by 4 cm. The top of the aortic arch is difficult to visualize on this AP lordotic film.Consider repeat chest x-ray for more accurate evaluation of IABP positioning.Stable cardiac silhouette.No overt pulmonary edema.No acute osseous abnormality. Signed: Kiran Gustafson MDReport Verified Date/Time: 08/17/2017 22:17:17 Reading Location: [facility]X Ortho Consult Reading Room Electronically signed by: KIRAN GUSTAFSON MD on 2016 10:17 PMRAD, CHEST, 1 VIEW, NON [id number] 22:08:00Reason for exam:-&gt ;IABPShould this be performed at the bedside?->YesFINAL REPORT Technique: Single view of the chest COMPARISON: None FINDINGS: Lung volumes are low. Prominence of the cardiac silhouette and vasculature which may be related to poor inspiration and technique . There is no gross consolidation identified. No overt edema or large pleural effusion. IABP marker projects at the level of the dane. Signed: Nick Rodriguez MDReport VerifiedDate/Time: 2016 22:08:20 Reading Location: [facility]W Consult Reading Room
[2018-03-29 10:22] LABS: Absolute Lymphocytes (CBC) 1.1 K/uL (0.7-4.9); Basophils % 0.3 % (0-1.3); Eosinophils % 0.5 % (0-4.4); Lymphocytes % 11.5 % (15.3-44.8); MCH 27.4 pg (27.0-35.0); MCV 83.6 fL (80-100); MPV 8.8 fL (7.6-11.3); Monocytes % 10.8 % (3.3-12.3); RBC Red Blood Cell Count 5.74 M/uL (4.33-5.43)
[2018-03-29 10:35] LABS: Potassium 4.3 mEq/L (3.6-5.0); Protime INR 0.98
[2018-03-29 10:42] LABS: Albumin 4.5 g/dL (3.2-5.5); Bilirubin Direct 0.1 mg/dL (0-0.2); Bilirubin Total 0.6 mg/dL (0.3-1.2); Magnesium 1.9 mg/dL (1.8-2.5); Protein, Total 7.5 g/dL (6.0-8.3)
[2018-03-29 10:53] LABS: CKMB Creatine Kinase MB 10.6 ng/ml (0.3-4.0)
[2018-03-29] MEDS ORDERED: CLOPIDOGREL 75 MG TABLET ONE (10:59)
[2018-03-29] MEDS ORDERED: MORPHINE 4 MG/ML SYR ONE (10:59)
[2018-03-29] MEDS ORDERED: ONDANSETRON 4 MG/2 ML VIAL ONE (11:00)
--- NOTE | 2018-03-29 11:22 | RAD REPORT ---
EXAM DESCRIPTION: RAD - Chest Single View - 03/29/2018 10:26 am CLINICAL HISTORY: Chest pain, shortness of breath COMPARISON: August 2017 TECHNIQUE: AP portable chest image was obtained 1021 hours . FINDINGS: Lung volumes are relatively low. No peripheral mass or consolidation. Significant failure or volume overload are doubtful. CABG surgical changes are noted since the prior examination. The haz y appearance to the left heart border is not uncommon following the CABG surgical procedure. This is likely the affects of pericardial fat and surgical change. Trachea is midline. Heart size overall is felt to be normal for portable examination. No pneumothorax or large pleural effusion. No gross bony abnormality seen. No acute aortic findings suspected. IMPRESSION: No acute cardiopulmonary process. Poor visualization of the left heart border is believed be the affects of surgery rather than an acut e lung parenchymal process.
--- NOTE | 2018-03-29 12:18 | EKG ---
Test Date: 2018-03-29 Test Time: 09:53:20 Retoucher Photoengraving: CASSIUS MEASUREMENT RESULTS: Intervals: Rate: 71 WY: 140 QRSD: 90 QT: 402 QTc: 436 [place]: P: 58 WY: 140 QRS: -6 T: 93 INTERPRETIVE STATEMENTS: Normal sinus rhythm non specific T abnormality Abnormal ECG Compared to ECG 08/17/2017 08:49:37 T-wave abnormality now present Electronically Signed On 03-29-18 12:17:27 CDT by Jose Linares
--- NOTE | 2018-03-29 12:55 | ER ---
Nurse's Notes [facility] Name: Kyle Harris Age: 62 yrs Sex: Male : 1955 Arrival Date: 03/29/2018 Time: 09:31 Bed 4 Private MD: Chelsea Robertson C Diagnosis: Chest pain, unspecified Presentation: 03/29 09:59 Presenting complaint: Patient states: Shortness of breath and chest pain that feels jl7 like a knot started last night around 2100., rated 6/10 at worst. Reports CABG on August 18 2017. Transition of care: patient was not received from another setting of care. Onset of symptoms was March 28, 2018. Initial Sepsis Screen: Does the patient meet any 2 criteria? No. Patient's initial sepsis screen is negative. Does the patient have a suspected source of infection? No. Patient's initial sepsis screen is negative. Care prior to arrival: None. 09:59 Method Of Arrival: Ambulatory jl7 09:59 Acuity: TONJA 2 jl7 Triage Assessment: 10:02 General: Appears in no apparent distress. uncomfortable, Behavior is cooperative, jl7 anxious. Pain: Complains of pain in anterior aspect of left upper chest Pain radiates to left arm Pain currently is 3 out of 10 on a pain scale. at worst was 6 out of 10 on a pain scale. Quality of pain is described as "Like a knot in there." Pain began 1 day ago. Is intermittent. Neuro: Level of Consciousness is awake, alert, obeys commands, Oriented to person, place, time, situation. Cardiovascular: Patient's skin is warm and dry. Respiratory: Airway is patent Respiratory effort is even, unlabored, Respiratory pattern is regular, symmetrical. Derm: Skin is pink, warm \\T\\ dry. Historical: - Allergies: 10:02 Aspirin; jl7 10:02 Benadryl; jl7 10:02 Ibuprofen; jl7 10:02 Naproxen; jl7 - Home Meds: 10:10 docusate sodium 250 mg Oral cap 1 cap once daily [Active]; atorvastatin 40 mg oral tab ae1 1 tab nightly [Active]; Jardiance 10 mg oral tab 1 tab once daily [Active]; metoprolol tartrate 25 mg oral tab 1.5 tab 2 times per day [Active]; lisinopril 10 mg Oral tab 1 tab once daily [Active]; Januvia 50 mg oral tab 1 tabs once daily [Active]; clopidogrel 75 mg oral tab 1 tab once daily [Active]; glimepiride 1 mg Oral tab 1 tab BID [Active]; - PMHx: 10:02 Diabetes - NIDDM; High Cholesterol; Hypertension; jl7 - PSHx: 10:02 CABG; jl7 10:10 Hernia repair; ae1 - Immunization history:: Adult Immunizations up to date. - Social history:: Smoking status: Patient/guardian denies using tobacco, but has a distant history of tobacco abuse. Screenin:05 Abuse screen: Denies threats or abuse. Nutritional screening: No deficits noted. ae1 10:12 Tuberculosis screening: No symptoms or risk factors identified. Fall Risk None ae1 identified. Assessment: 10:30 General: Appears in no apparent distress. comfortable, Behavior is cooperative, ae1 anxious. Pain: Complains of pain in chest. Neuro: Level of Consciousness is awake, alert, obeys commands, Oriented to person, place, time, situation. Cardiovascular: Heart tones S1 S2 present Patient's skin is warm and dry. Rhythm is regular. Respiratory: Reports shortness of breath at rest Airway is patent Respiratory effort is even, unlabored, Respiratory pattern is regular, symmetrical. GI: No signs and/or symptoms were reported involving the gastrointestinal system. Patient currently denies nausea. : No signs and/or symptoms were reported regarding the genitourinary system. EENT: No signs and/or symptoms were reported regarding the EENT system. Derm: Skin is pink, warm \\T\\ dry. Derm: healed scar to the sternal area. Musculoskeletal: No signs and/or symptoms reported regarding the musculoskeletal system. 10:53 Reassessment: CKMB 10.6, provider notified. jl7 11:04 Reassessment: Patient appears in no apparent distress at this time. Patient and/or ae1 family updated on plan of care and expected duration. Pain level reassessed. Patient states he does not need pain medication at this time. Denies pain and denies nausea. Provider notified, will continue to monitor. 12:12 Reassessment: Patient appears in no apparent distress at this time. Patient and/or ae1 family updated on plan of care and expected duration. Pain level reassessed. and daughter in law at bedside. Patient denies pain at this time. 15:39 Reassessment: report called to CHELITA Shea via telephone. Registration notified that ae1 report has been called. Vital Signs: 09:55 BP 152 / 77; Pulse 76; Resp 16; Pulse Ox 98% on R/A; ae1 10:02 BP 135 / 78; Pulse 74; Resp 19; Temp 98(O); Pulse Ox 95% on R/A; ae1 10:10 Weight 99.34 kg (R); ae1 11:05 BP 128 / 65; Pulse 70; Resp 18; Pulse Ox 95% on R/A; ae1 12:06 BP 138 / 72; Pulse 73; Resp 18; Pulse Ox 98% on R/A; ae1 12:53 BP 156 / 75; Pulse 75; Resp 18; Pulse Ox 97% ; jl7 15:11 BP 131 / 74; Pulse 77; Resp 18; Pulse Ox 96% on R/A; ae1 ED Course: 09:31 Patient arrived in ED. mr 09:32 Chelsea Robertson MD is Private Physician. mr 09:58 Jacob Amaya PA is PHCP. cp 09:58 Ino Newton MD is Attending Physician. cp 10:01 Triage completed. jl7 10:02 Robert Michel, CHELITA is Primary Nurse. ae1 10:02 Arm band placed on right wrist. jl7 10:05 Placed in gown. Bed in low position. Call light in reach. Side rails up X 1. Adult w/ ae1 patient. distillation operator helper on. Pulse ox on. NIBP on. Warm blanket given. 10:05 Inserted saline lock: 22 gauge in right forearm, using aseptic technique. Blood ae1 collected. Patient maintains SpO2 saturation greater than 95% on room air. 10:06 EKG done, by technical architect. reviewed by Ino Newton MD. tc 10:24 X-ray completed. Portable x-ray completed in exam room. Patient tolerated procedure la2 well. 10:25 XRAY Chest (1 view) In Process Unspecified. EDMS 12:54 Chelsea Robertson MD is Hospitalizing Provider. cp 15:40 No provider procedures requiring assistance completed. Patient admitted, IV remains in ae1 place. Administered Medications: 11:04 Drug: PlaVIX 75 mg Route: PO; ae1 13:08 Follow up: Response: No adverse reaction ae1 15:19 Not Given (Patient Refused): morphine 2 mg IVP once ae1 15:19 Not Given (Patient Refused): Zofran 4 mg IVP once; over 2 minutes ae1 Outcome: 12:54 Decision to Hospitalize by Provider. cp 15:40 Admitted to Tele accompanied by tech, family with patient, room 430, with chart, Report ae1 called to CHELITA Shea 15:40 Condition: stable 15:40 Instructed on the need for admit, Demonstrated understanding of instructions. 16:06 Patient left the ED. iw Signatures: Dispatcher [employer] EDMS Deb Mendez Irene, RN RN iw Ligia Asher, director of mechanical engineering EKG Ttc Jcaob Amaya PA PA cp Elliott, Andrea RN RN ae1 Umair Grande RN RN jl7 Jenelle Wallace2 Corrections: (The following items were deleted from the chart) 15:42 15:39 Reassessment: report called to CHELITA Shea via telephone. ae1 ae1
--- NOTE | 2018-03-29 12:55 | EDPHYS ---
Physician Documentation [facility] Name: Kyle Harris Age: 62 yrs Sex: Male : 1955 Arrival Date: 03/29/2018 Time: 09:31 Bed 4 Private MD: Chelsea Robertson C ED Physician Ino Newton HPI: 03/29 10:14 This 62 yrs old Male presents to ER via Ambulatory with complaints of Chest cp Pain. 10:14 The patient or guardian reports chest pain that is located primarily in the anterior cp chest wall, bilaterally. Onset: last night. The pain radiates to the left arm. Associated signs and symptoms: Pertinent negatives: abdominal pain, cough, dizziness, lower extremity pain, lower extremity swelling, lightheadedness, nausea, near syncope, recent travel, syncope. The chest pain is described as a pressure. Historical: - Allergies: 10:02 Aspirin; jl7 10:02 Benadryl; jl7 10:02 Ibuprofen; jl 10:02 Naproxen; jl7 - Home Meds: 10:10 docusate sodium 250 mg Oral cap 1 cap once daily [Active]; atorvastatin 40 mg oral tab ae1 1 tab nightly [Active]; Jardiance 10 mg oral tab 1 tab once daily [Active]; metoprolol tartrate 25 mg oral tab 1.5 tab 2 times per day [Active]; lisinopril 10 mg Oral tab 1 tab once daily [Active]; Januvia 50 mg oral tab 1 tabs once daily [Active]; clopidogrel 75 mg oral tab 1 tab once daily [Active]; glimepiride 1 mg Oral tab 1 tab BID [Active]; - PMHx: 10:02 Diabetes - NIDDM; High Cholesterol; Hypertension; jl7 - PSHx: 10:02 CABG; jl7 10:10 Hernia repair; ae1 - Immunization history:: Adult Immunizations up to date. - Social history:: Smoking status: Patient/guardian denies using tobacco, but has a distant history of tobacco abuse. ROS: 10:20 Constitutional: Negative for body aches, chills, fever, poor PO intake. cp 10:20 Eyes: Negative for injury, pain, redness, and discharge. cp 10:20 ENT: Negative for drainage from ear(s), ear pain, sore throat, difficulty swallowing, difficulty handling secretions. 10:20 Cardiovascular: Positive for chest pain, Negative for edema, palpitations. 10:20 Respiratory: Positive for shortness of breath, on exertion. Negative for cough, wheezing. 10:20 Abdomen/GI: Negative for abdominal pain, nausea, vomiting, and diarrhea, black/tarry stool, rectal bleeding. 10:20 Back: Negative for pain at rest, pain with movement, radiated pain. 10:20 Skin: Negative for cellulitis, rash. 10:20 Neuro: Negative for altered mental status, headache, weakness. 10:20 All other systems are negative. Exam: 10:00 ECG was reviewed by the Attending Physician. cp 10:28 Constitutional: The patient appears in no acute distress, alert, awake, cp non-diaphoretic, non-toxic, well developed, well nourished. 10:28 Head/Face: Normocephalic, atraumatic. cp 10:28 Eyes: Pupils equal round and reactive to light, extra-ocular motions intact. Lids and cp lashes normal. Conjunctiva and sclera are non-icteric and not injected. Cornea within normal limits. Periorbital areas with no swelling, redness, or edema. ENT: Nares patent. No nasal discharge, no septal abnormalities noted. Tympanic membranes are normal and external auditory canals are clear. Oropharynx with no redness, swelling, or masses, exudates, or evidence of obstruction, uvula midline. Mucous membranes moist. Neck: Trachea midline, no thyromegaly or masses palpated, and no cervical lymphadenopathy. Supple, full range of motion without nuchal rigidity, or vertebral point tenderness. No Meningismus. Chest/axilla: Normal chest wall appearance and motion. Nontender with no deformity. No lesions are appreciated. 10:28 Cardiovascular: Rate: normal, Rhythm: regular, Pulses: Pulses are 2+ in right radial artery and left radial artery. Edema: is not appreciated, JVD: is not appreciated. 10:28 Respiratory: the patient does not display signs of respiratory distress, Respirations: normal, no use of accessory muscles, no retractions, no splinting, no tachypnea, labored breathing, is not present, Breath sounds: are clear throughout, no decreased breath sounds, no stridor, no wheezing. 10:28 Abdomen/GI: Inspection: abdomen appears normal, Bowel sounds: active, all quadrants, cp Palpation: abdomen is soft and non-tender, in all quadrants, rebound tenderness, is not appreciated, voluntary guarding, is not appreciated, involuntary guarding, is not appreciated. 10:28 Back: pain, is absent, ROM is normal. 10:28 Musculoskeletal/extremity: Extremities: all appear grossly normal, with no appreciated pain with palpation. 10:28 Skin: cellulitis, is not appreciated, no rash present. 10:28 Neuro: Orientation: to person, place \T\ time. Mentation: lucid, able to follow commands, Cerebellar function: is grossly normal, Motor: moves all fours, strength is normal, Sensation: no obvious gross deficits. Vital Signs: 09:55 BP 152 / 77; Pulse 76; Resp 16; Pulse Ox 98% on R/A; ae1 10:02 BP 135 / 78; Pulse 74; Resp 19; Temp 98(O); Pulse Ox 95% on R/A; ae1 10:10 Weight 99.34 kg (R); ae1 11:05 BP 128 / 65; Pulse 70; Resp 18; Pulse Ox 95% on R/A; ae1 12:06 BP 138 / 72; Pulse 73; Resp 18; Pulse Ox 98% on R/A; ae1 12:53 BP 156 / 75; Pulse 75; Resp 18; Pulse Ox 97% ; jl7 15:11 BP 131 / 74; Pulse 77; Resp 18; Pulse Ox 96% on R/A; ae1 MDM: 09:58 Patient medically screened. cp 11:00 Differential diagnosis: abnormal EKG, acute myocardial infarction, chest wall pain, cp gastroesophageal reflux disease (GERD), pancreatitis, pericarditis, pleurisy, pneumonia, pneumothorax, pulmonary embolus, stable angina, unstable angina. 11:38 Data reviewed: vital signs, nurses notes, lab test result(s), EKG, radiologic studies, cp plain films. 11:40 The patient was not given aspirin in the Emergency Department. Not indicated due to cp patient's past medical history. Physician consultation: A Marcelo OLIVEIRA was called at 11:40, will call back. 12:50 Physician consultation: A Marcelo OLIVEIRA was called at 12:52, was contacted at 12:52, regarding admission, to the telemetry unit. patient's condition. 03/29 10:05 Order name: Basic Metabolic Panel; Complete Time: 11:01 03/29 11:02 Interpretation: Normal except: GLUC 137; BUN 28; CRE 1.46; GFR 49. cp 03/29 10:05 Order name: BNP; Complete Time: 11:01 cp 03/29 11:02 Interpretation: Abnormal: BNP 107. cp 03/29 10:05 Order name: CBC with Diff; Complete Time: 10:42 cp 03/29 10:42 Interpretation: Normal except: RBC 5.74; DARIUSZ% 76.9; LYM% 11.5. cp 03/29 10:05 Order name: Ckmb; Complete Time: 11:01 cp 03/29 11:02 Interpretation: Abnormal: CKMB 10.6. cp 03/29 10:05 Order name: CPK; Complete Time: 11:01 cp 03/29 11:03 Interpretation: Abnormal: CPK 358. cp 03/29 10:05 Order name: LFT's; Complete Time: 11:01 cp 03/29 10:05 Order name: Magnesium; Complete Time: 11:01 03/29 10:05 Order name: PT-INR; Complete Time: 10:42 cp 03/29 10:05 Order name: Ptt, Activated; Complete Time: 10:42 cp 03/29 10:05 Order name: Troponin (emerg Dept Use Only); Complete Time: 11:01 cp 03/29 10:05 Order name: Lipase; Complete Time: 11:01 03/29 13:15 Order name: Urine Dipstick--Ancillary (enter results) em1 03/29 13:28 Order name: Basic Metabolic Panel [facility] 03/29 13:28 Order name: Basic Metabolic Panel [facility] 03/29 10:05 Order name: XRAY Chest (1 view); Complete Time: 11:37 cp 03/29 10:05 Order name: EKG; Complete Time: 10:06 03/29 12:50 Order name: Diet Ada 2000 Nathanael; Complete Time: 12:50 cp 03/29 13:28 Order name: CONS Physician Consult [facility] 03/29 13:28 Order name: EKG Electrocardiogram [facility] 03/29 13:28 Order name: EKG Electrocardiogram [facility] 03/29 13:28 Order name: EKG Electrocardiogram [facility] 03/29 13:28 Order name: EKG Electrocardiogram [facility] 03/29 13:28 Order name: CBC with Automated Diff [facility] 03/29 13:28 Order name: CBC with Automated Diff [facility] 03/29 13:28 Order name: Troponin I [facility] 03/29 13:28 Order name: Troponin I [facility] 03/29 13:28 Order name: Troponin I [facility] 03/29 10:05 Order name: Cardiac monitoring; Complete Time: 10:13 cp 03/29 10:05 Order name: EKG - Nurse/Tech; Complete Time: 10:13 cp 03/29 10:05 Order name: IV Saline Lock; Complete Time: 10:13 cp 03/29 10:05 Order name: Labs collected and sent; Complete Time: 10:13 cp 03/29 10:05 Order name: O2 Per Protocol; Complete Time: 10:13 cp 03/29 10:05 Order name: O2 Sat Monitoring; Complete Time: 10:14 cp 03/29 10:05 Order name: Urine Dipstick-Ancillary (obtain specimen); Complete Time: 13:09 cp EC:00 Rate is 71 beats/min. Rhythm is regular. MT interval is normal. QRS interval is normal. cp QT interval is normal. T waves are Inverted in leads aVL, V2. Interpreted by me. Reviewed by me. Administered Medications: 11:04 Drug: PlaVIX 75 mg Route: PO; ae1 13:08 Follow up: Response: No adverse reaction ae1 15:19 Not Given (Patient Refused): morphine 2 mg IVP once ae1 15:19 Not Given (Patient Refused): Zofran 4 mg IVP once; over 2 minutes ae1 Disposition: 18:04 Co-signature as Attending Physician, Ino Newton MD I agree with the assessment and kdr plan of care. Disposition: 03/29/18 12:54 Hospitalization ordered by Chelsea Robertson for Observation. Preliminary diagnosis is Chest pain, unspecified. - Bed requested for Telemetry/MedSurg (observation). - Status is Observation. iw - Condition is Stable. - Problem is new. - Symptoms have improved. UTI on Admission? No Signatures: Dispatcher [employer] Ino Lovelace MD MD kdr Williams, Irene, RN RN iw Martinez, Eric em1 Jacob Amaya PA PA Robert Fulton RN RN ae1 Umair Grande RN RN jl7 Corrections: (The following items were deleted from the chart) 14:55 12:54 Hospitalization Ordered by A Marcelo OLIVEIRA for Observation. Preliminary diagnosis is em1 Chest pain, unspecified. Bed requested for Telemetry/MedSurg (observation). Status is Observation. Condition is Stable. Problem is new. Symptoms have improved. UTI on Admission? No. cp 16:06 14:55 03/29/2018 12:54 Hospitalization Ordered by A Marcelo OLIVEIRA for Observation. iw Preliminary diagnosis is Chest pain, unspecified. Bed requested for Telemetry/MedSurg (observation). Status is Observation. Condition is Stable. Problem is new. Symptoms have improved. UTI on Admission? No. em1
[2018-03-29 13:21] LABS: Urine Blood NEGATIVE (NEG); Urine Glucose 2+ (NEG); Urine Protein NEGATIVE (NEG); Urine Specific Gravity 1.015 (1.005-1.030); Urine pH 5.5 (5.0-7.0)
[2018-03-29] MEDS ORDERED: MORPHINE 4 MG/ML SYR IV PRN (13:25)
[2018-03-29] MEDS ORDERED: ONDANSETRON 4 MG/2 ML VIAL IV PRN (13:25)
[2018-03-29] MEDS ORDERED: ACETAMINOPHEN 500 MG TAB PO PRN (13:25)
[2018-03-29] MEDS ORDERED: D50W 25 GM/50 ML SYRINGE IV PRN (13:27)
[2018-03-29] MEDS ORDERED: GLUCAGON 1 MG/VIAL IM PRN (13:27)
[2018-03-29] MEDS: INSULIN -REGULAR HUMAN 50 UNIT/0.5 ML ML SQ SCH ×2 (16:15→20:31)
[2018-03-29 16:31] VITALS: BMI 28.8
[2018-03-29] MEDS: ENOXAPARIN 40 MG/0.4 ML SQ SCH (17:25)
--- NOTE | 2018-03-30 06:05 | HP ---
Date of Admission: 03/29/2018 Chief Complaint: Chest pain. History Of Present Illness: This is a 62-year-old male patient with history of coronary artery disea se, who came into emergency room with above-mentioned complaints. He was doing fine until yesterday. All of a sudden, he started to have chest pain which he describes as pain in his bilateral chest, b ilateral shoulder area, and the pain is noticeable with deep breathing. Denies any fever or chills. No cough, cold, congestion. No hemoptysis. No fall. No injury. No rash. The patient came into e mergency room with this. After he was evaluated, he was admitted to the hospital. Allergies: ASPIRIN CAUSING HIVES, CODEINE CAUSING HIVES, HYDROCODONE CAUSING HIVES, AND NAPROXEN CAU SING FACE SWELLING. Medications: Atorvastatin 40 mg daily at bedtime, glimepiride 1 mg 2 times a day, Januvia 50 mg p.o. daily, Jardiance 10 mg p.o. daily in morning, lisinopril 10 mg p.o. daily, metoprolol 25 mg 2 times a day, Plavix 75 mg p.o. daily. Review of Systems: Cardiovascular: As mentioned above. Respiratory: As mentioned above. All other systems reviewed and negative. 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 Past Surgical History: Significant for coronary artery bypass surgery on August 18, 2017; pericardio centesis; and repair of ventral hernia. Family History: Significant for diabetes, coronary artery disease, valvular heart disease, osteoarth ritis. Social History: Prior history of smoking, not at present time. Use of alcohol, negative. Physical Examination: Vital Signs: Height 6 feet 1 inch. Weight 219 pounds. Temperature 97.8, pulse 80, respiratory rate 18, blood pressure 152/78. General: Awake, alert, oriented, not in distress. HEENT: Head atraumatic, normocephalic. Conjunctivae nonerythematous. Sclerae white. Mouth, no thr ush or edema noted. Ears/Nose, no mass, lesion, discharge noted. Neck: Supple. No JVD, lymph nodes, bruit, thyromegaly noted. Lungs: Bilateral good equal air entry. Clear to auscultation. No rhonchi. No rales. Heart: Normal heart sounds, no murmur or gallop. Abdomen: Soft, bowel sounds normal. No guarding, rigidity, tenderness, mass, hepatosplenomegaly, dis tention, or bruit noted. Extremities: No leg edema. No calf tenderness. Skin: No rash, ulcer, cellulitis. Lymphatics: No lymph node enlargement in neck, supraclavicular, infraclavicular region. Neuro: No focal neurological deficit. Chest: Unremarkable. External Genitalia: Deferred. Rectal: Deferred. Laboratory Data: Chest x-ray shows increased haziness in the left lung base region. White count fro m 9.1, hemoglobin 15.7, platelets 253. Troponin, less than 0.03. Urinalysis negative. Impression: 1.Chest pain, likely due to pleurisy. 2.Coronary artery disease. 3.Hypertension. 4.Hyperlipidemia, mixed. 5.Type 2 diabetes mellitus. Plan: Admit the patient to hospital for further evaluation and management of this problem. The diamond ent is appropriate for observation. We will go ahead and get serial cardiac enzymes. Consult Cardio logy. Get echo with Doppler tomorrow and get a CAT scan of the chest tomorrow. Home medications will be continued per order. Details were discussed with mary ellen campos patient and patient's . CHRISSY/ASHA Voice ID: [id number]
[2018-03-30 06:27] LABS: Absolute Lymphocytes (CBC) 1.5 K/uL (0.7-4.9); Absolute Monocytes 1.1 K/uL (0.1-1.3); Absolute Neutrophil 5.2 K/uL (1.8-8.0); Basophils % 0.4 % (0-1.3); Eosinophils % 0.6 % (0-4.4); Hematocrit 44.9 % (39.6-49.0); Lymphocytes % 18.8 % (15.3-44.8); MCV 82.9 fL (80-100); MPV 8.8 fL (7.6-11.3); Monocytes % 13.7 % (3.3-12.3); RBC Red Blood Cell Count 5.42 M/uL (4.33-5.43)
[2018-03-30 07:01] LABS: Potassium 4.4 mEq/L (3.6-5.0)
[2018-03-30] MEDS: INSULIN -REGULAR HUMAN 50 UNIT/0.5 ML ML SQ SCH ×3 (07:30→16:02)
[2018-03-30] MEDS ORDERED: CLOPIDOGREL 75 MG TABLET PO SCH (09:00)
[2018-03-30 09:45] VITALS: O2SAT 95
--- NOTE | 2018-03-30 10:21 | RAD REPORT ---
EXAM DESCRIPTION: CT - Thorax Wo Con CLINICAL HISTORY: Chest pain COMPARISON: Chest radiograph 03/29/2018 FINDINGS: Linear subsegmental atelectasis is present in both posterior lung bases. No focal infiltra te. No pleural thickening or pleural effusion. No pneumothorax. No axillary, mediastinal or hilar adenopathy. Postsurgical changes are present involving the mediasti num compatible with prior CABG. No concerning bony finding. No gross upper abdominal finding. All CT scans are performed using dose optimization technique as appropriate and may include automated exposure control or mA/KV adjustment according to patient size. IMPRESSION: No acute intrathoracic abnormality.
[2018-03-30 11:04] LABS: A1c Component 0.9 mg/dL; Hemoglobin A1c 7.4 % (4-6.0)
--- NOTE | 2018-03-30 12:39 | ECHO ---
HEIGHT: 6 ft 1 in WEIGHT: 219 lb 0 oz DATE OF STUDY: 03/30/[address]: Daniel Robertson MD 2-DIMENSIONAL: YES M.MODE: YES DOPPLER: YES COLOR FLOW: YES TDS: NO PORTABLE: NO DEFINITY: NO BUBBLE STUDY: NO DIAGNOSIS: CHEST PAIN CARDIAC HISTORY: CATHERIZATION: NO SURGERY: CABGx3 PROSTHETIC VALVE: NO PACEMAKER: NO MEASUREMENTS (cm) DIASTOLIC (NORMALS) SYSTOLIC (NORMALS) IVSd 1.2 (0.6-1.2) LA Diam 3.8 (1.9-4.0) LVEF 60% LVIDd 3.3 (3.5-5.7) LVIDs 2.3 (2.0-3.5) %FS 31% LVPWd 1.2 (0.6-1.2) Ao Diam 3.0 (2.0-3.7) 2 DIMENSIONAL ASSESSMENT: RIGHT ATRIUM: NORMAL LEFT ATRIUM: NORMAL RIGHT VENTRICLE: NORMAL LEFT VENTRICLE: NORMAL TRICUSPID VALVE: NORMAL MITRAL VALVE: NORMAL PULMONIC VALVE: NORMAL AORTIC VALVE: NORMAL PERICARDIAL EFFUSION: NONE AORTIC ROOT: NORMAL LEFT VENTRICULAR WALL MOTION: NORMAL. DOPPLER/COLOR FLOW: MILD TRICUSPID REGURGITATION. NORMAL RIGHT VENTRICULAR SYSTOLIC PRESSURE. COMMENTS: NORMAL 2D ECHO. MILD TRICUSPID REGURGITATION. TECHNOLOGIST: HERNANDEZ ARANGO
[2018-03-30 16:08] VITALS: BP 170/82; TEMP 97.5
--- NOTE | 2018-03-30 16:22 | EKG ---
Test Date: 2018-03-30 Test Time: 08:44:51 Train Engineer: CASSIUS MEASUREMENT RESULTS: Intervals: Rate: 93 CT: 124 QRSD: 86 QT: 360 QTc: 447 [place]: P: 59 CT: 124 QRS: -7 T: 89 INTERPRETIVE STATEMENTS: Normal sinus rhythm Normal ECG Compared to ECG 03/29/2018 09:53:20 T-wave abnormality no longer present Electronically Signed On 03-30-18 16:19:36 CDT by Jeet House
[2018-03-30] MEDS: ENOXAPARIN 40 MG/0.4 ML SQ SCH (16:59)
[2018-03-30] MEDS ORDERED: LISINOPRIL 10 MG TAB PO ONE (17:00)
[2018-03-30] MEDS ORDERED: METOPROLOL TAR 25 MG TAB PO ONE (17:00)
--- NOTE | 2018-03-31 02:28 | DS ---
Date of Discharge: 03/30/2018 Disposition: Discharged to go home. Physical Examination: HEENT: Unremarkable. Lungs: Clear to auscultation. Heart: Sounds normal. Abdomen: Soft, bowel sounds normal. No guarding, rigidity, tenderness, or distention. Extremities: No leg edema. Laboratory Data: White count 7.8 today, hemoglobin 15.1 platelets 207. Sodium 138, potassium 4.4, c hloride 105, bicarb 26. BUN 22, creatinine 1.21, glucose 141. Hemoglobin A1c was pending when I saw him this morning. Troponin less than 0.03. Hospital Course: A 62-year-old male patient, admitted to the hospital with complaints of chest pain. Please see dictated H and P for more information. After the patient was evaluated in the emergency room, he was admitted to the hospital. His chest pain was atypical in nature, more like pleuritic i n nature. His NH was ruled out by getting serial cardiac enzymes. Cardiology consultation was obtai michi. The patient had a chest x-ray done, which showed some increased haziness in the left lung base. Echocardiogram done today shows normal ejection fraction. No evidence of pericardial effusion. CA T scan of the chest was done without contrast and came back unremarkable. No evidence of pleural eff usion. No evidence of pneumonia. The patient's chest pain, when he present, was with bleeding and o vernight his chest pain has improved. Has not gone away completely but it is much better compared to yesterday. Allergies: HE IS ALLERGIC ASPIRIN AND NONSTEROIDAL ANTI-INFLAMMATORY MEDICATION AND HE HAS DIABETES, SO WE WILL NOT BE ABLE TO USE ANY NSAIDS OR ANY STEROID MEDICATION FOR HIS PLEURISY AND CONSIDERING SYMPTOMS ARE GETTING BETTER, NO NEED FOR ANY INTERVENTION AT THIS POINT. Final Diagnoses: 1.Chest pain. 2.Pleurisy. 3.Coronary artery disease. 4.Hypertension. 5.Type 2 diabetes mellitus. 6.Hyperlipidemia, mixed. CHRISSY/MODL Voice ID: [id number] Report ID: [id number]
--- NOTE | 2018-03-31 03:40 | CON ---
Date of Consultation: 03/30/2018 The patient was admitted on 03/29/[address] Robertson's service. Reason For Consultation: Chest pain. History Of Present Illness: Mr. Harris is a 62-year-old white male. He is status post CABG in 2016. He has a history of diabetes, hypertension, dyslipidemia. His CABG was the RAMOS to the LAD and his saphenous vein graft to the OM. He has done very well. We have seen him in the office. He came in with chest pain that sounds pleuritic. It is atypical left-sided, worse when he takes a deep breath. No PND, orthopnea, pedal edema, palpitations or syncope. Has felt some slight shortness of breath recently. Past Medical History: As stated above. Allergies: ALLERGIC TO ASPIRIN AND BENADRYL. Review of Systems: Negative. Social History: Negative. Family History: Noncontributory. Medications: At home include Lipitor, Jardiance, metoprolol, lisinopril, Plavix, and glimepiride. Physical Examination: General: He was pleasant as usual, no acute distress. Vital Signs: Stable, afebrile, normal rhythm. HEENT: Exam is negative. Neck: Supple without any bruit, lymphadenopathy, JVD or thyromegaly. Chest: Clear to auscultation and percussion. Cardiac: Exam revealed a regular rhythm and rate without any murmurs, gallops or rubs. Abdomen: Benign. Extremities: Revealed no clubbing, cyanosis or edema. Diagnostic Data: His EKG showed nonspecific changes. Creatinine is 1.46. Chest x-ray was negative. Echocardiogram was pending. Impression And Plan: 1.Pleuritic chest pain. 2.Status post coronary artery bypass graft. 3.Shortness of breath. 4.Renal insufficiency, moderate. 5.Hypertension. 6.Dyslipidemia. 7.Diabetes. We will see what the echocardiogram showed on Mr. Harris. He certainly is way too far to have a Dress ler syndrome kind of picture. I think he has pleurisy. I will be interested to see what the echocar diogram shows as far as his shortness of breath is concerned. I do not think we need to do another C ardiolite on him. I will discuss the case further with Dr. Robertson. NB/MODL Voice ID: [id number] Report ID: [id number]
== END 2018-03-30 17:46 | disposition home or self-care (01) ==
LOC: ER 09:31 → ERHOLD 13:24 → 4TH 15:13 → ERHOLD 15:13 → 4TH 15:40
PROVIDERS: ADMIT Internal Medicine; ATTEND Internal Medicine
DX: R07.9 Chest pain, unspecified (principal); R09.1 Pleurisy; I25.10 Atherosclerotic heart disease of native coronary artery without angina pectoris; I12.9 Hypertensive chronic kidney disease with stage 1 through stage 4 chronic kidney disease, or unspecified chronic kidney disease; E11.22 Type 2 diabetes mellitus with diabetic chronic kidney disease; N18.3 Chronic kidney disease, stage 3 (moderate); Z95.1 Presence of aortocoronary bypass graft; Z88.6 Allergy status to analgesic agent; E78.2 Mixed hyperlipidemia
CPT/HCPCS: 36415; 71045; 71250; 80048; 80061; 80076; 81003; 82550; 82553; 82962; 83036; 83690; 83735; 83880; 84484; 85025; 85610; 85730; 93005; 93306; 99285; G0378; J1650; J2405